=== PATIENT | male | born 1955 | race Hispanic/Latino ===

== ENCOUNTER 2016-08-05 15:13 | Inpatient (IN) | payer OTHER ==
[2016-08-05 15:30] VITALS: BMI 35.9
--- NOTE | 2016-08-05 15:49 | ED PDOC ---
Arrival/HPI - General Chief Complaint: Abnormal Labs Time Seen by Provider: 08/05/16 15:40 Historian: Patient - History of Present Illness Narrative History of Present Illness (Text): 08/05/16 15:45 61 year old male whose past medical history includes diabetes, kidney disease, CHF, vasculitis, sent to the emergency department for elevated creatinine. Patient also reports chronic shortness of breath which is unchanged. says the patient is sleeping a lot. Patient denies urinary symptoms, weight change, chest pain, abdominal pain, or other symptoms. PMD: Dr. Mc Symptom Onset: Gradual Symptom Course: Unchanged Modifying Factors (Text): None Associated Symptoms (Text): None Past Medical History - Provider Review Nursing Documentation Reviewed: Yes - Infectious Disease Hx of Infectious Diseases: None - Tetanus Immunization Tetanus Immunization: Unknown - Past Medical History Past Medical History: No Previous - Cardiac Hx Congestive Heart Failure: Yes Hx Hypertension: Yes - Pulmonary Hx Chronic Obstructive Pulmonary Disease (COPD): Yes - Neurological Hx Neurological Disorder: No - HEENT Hx HEENT Disorder: No - Renal Hx Renal Disorder: Yes Hx Renal Failure: Yes - Endocrine/Metabolic Hx Diabetes Mellitus Type 1: Yes Hx Hypothyroidism: Yes - Hematological/Oncological Hx Anemia: Yes - Integumentary Hx Dermatological Disorder: No - Musculoskeletal/Rheumatological Hx Arthritis: Yes - Gastrointestinal Hx Gastrointestinal Disorders: No - Genitourinary/Gynecological Other/Comment: bph - Psychiatric Hx Depression: No Hx Emotional Abuse: No Hx Physical Abuse: No Hx Substance Use: No - Past Surgical History Past Surgical History: No Previous - Surgical History Hx Orthopedic Surgery: Yes - Anesthesia Hx Anesthesia Reactions: No Hx Malignant Hyperthermia: No - Suicidal Assessment Feels Threatened In Home Enviroment: No Family/Social History - Physician Review Nursing Documentation Reviewed: Yes Family/Social History: Unknown Family HX Smoking Status: Never Smoked Hx Alcohol Use: No Hx Substance Use: No Hx Substance Use Treatment: No Allergies/Home Meds Allergies/Adverse Reactions: Allergies No Known Allergies Allergy (Verified 08/05/16 15:30) Home Medications: Home Meds Medication Instructions Recorded Confirmed Atorvastatin Calcium [Lipitor] 20 mg PO DAILY 10/22/13 08/05/16 Insulin Glargine,Hum.rec.anlog 15 units SC DAILY 10/22/13 08/05/16 [Lantus] Insulin Lispro, Recombinant 15 units SC DAILY 10/22/13 08/05/16 [Humalog] Losartan [Cozaar] 50 mg PO DAILY 10/22/13 08/05/16 amLODIPine [Norvasc] 5 mg PO DAILY 10/22/13 08/05/16 Cholecalciferol [Vitamin D 1000 IU] 5,000 iu PO QWK 08/05/16 08/05/16 Insulin Glargine,Hum.rec.anlog 30 unit SQ DIN 08/05/16 08/05/16 [Toujeo Solostar] Levothyroxine [Synthroid] 88 mcg PO DAILY 08/05/16 08/05/16 Metoprolol Succinate [Toprol XL] 50 mg PO BID 08/05/16 08/05/16 Ondansetron [Zofran] 4 mg PO BID 08/05/16 08/05/16 Pantoprazole [Protonix] 40 mg PO DAILY 08/05/16 08/05/16 Temazepam [Restoril] 30 mg PO DIN 08/05/16 08/05/16 hydrALAZINE [hydralazine 50 mg PO Q4 08/05/16 08/05/16 Hydrochloride] oxyCODONE [oxyCODONE Immediate 15 mg PO Q4 08/05/16 08/05/16 Release Tab] predniSONE [Prednisone] 10 mg PO DAILY 08/05/16 08/05/16 Review of Systems - Physician Review All systems were reviewed & negative as marked: Yes - Review of Systems Constitutional: absent: Weight Change Respiratory: SOB (chronic, unchanged) Cardiovascular: absent: Chest Pain Gastrointestinal: absent: Abdominal Pain, Vomiting Genitourinary Male: absent: Dysuria, Frequency, Hematuria Physical Exam Vital Signs Reviewed: Yes Vital Signs Temp Pulse Resp BP Pulse Ox 08/05/16 15:30 98.1 F 93 H 18 151/95 H 97 08/05/16 15:29 98.1 F 93 H 18 151/95 H 97 Temperature: Afebrile Blood Pressure: Normal Pulse: Regular Respiratory Rate: Normal Appearance: Positive for: Well-Appearing, Non-Toxic, Comfortable Pain Distress: None Mental Status: Positive for: Alert and Oriented X 3 - Systems Exam Head: Present: Atraumatic, Normocephalic Pupils: Present: PERRL Extroacular Muscles: Present: EOMI Conjunctiva: Present: Normal Mouth: Present: Moist Mucous Membranes Neck: Present: Normal Range of Motion Respiratory/Chest: Present: Clear to Auscultation, Good Air Exchange. No: Respiratory Distress, Accessory Muscle Use Cardiovascular: Present: Regular Rate and Rhythm, Normal S1, S2. No: Murmurs Abdomen: Present: Normal Bowel Sounds. No: Tenderness, Distention, Peritoneal Signs Back: Present: Normal Inspection Upper Extremity: Present: Normal Inspection. No: Cyanosis, Edema Lower Extremity: Present: Normal Inspection. No: Edema Neurological: Present: GCS=15, CN II-XII Intact, Speech Normal Skin: Present: Warm, Dry, Normal Color. No: Rashes Psychiatric: Present: Alert, Oriented x 3, Normal Insight, Normal Concentration Medical Decision Making ED Course and Treatment: Impression: 61 year old male whose past medical history includes diabetes, kidney disease, CHF, vasculitis, sent to the emergency department for elevated creatinine. Plan: -- Chest X-ray -- Labs -- Reassess and disposition Progress Notes: 08/05/16 18:08 Patient says that his last creatinine was 2.1 about 3 months ago and today on blood draw it is 5.9; will need to be admitted for further evaluation and treatment by renal. Discussed with Dr. Makayla Mcmahon. - Lab Interpretations Lab Results: 08/05/16 16:20 08/05/16 16:20 Lab Results 08/05/16 16:20: Blood Type O NEGATIVE, Antibody Screen Negative, BBK History Checked Patient has bt 08/05/16 16:20: Sodium 138, Potassium 4.7, Chloride 108 H, Carbon Dioxide 20 L, Anion Gap 15, BUN 68 H, Creatinine 5.9 H, Est GFR ( Amer) 12, Est GFR ( Non-Af Amer) 10, Random Glucose 164 H, Calcium 8.5, Phosphorus 5.0 H, Magnesium 1.5 L, Total Bilirubin 0.5, AST 18, ALT 22, Alkaline Phosphatase 141 H, Lactate Dehydrogenase 329 L, Total Creatine Kinase 42, Troponin I < 0.01, Total Protein 6.7, Albumin 3.4, Globulin 3.4, Albumin/Globulin Ratio 1.0 L, Amylase 71, Lipase 59 08/05/16 16:20: PT 11.2, INR 1.04, APTT 27.7 08/05/16 16:20: WBC 13.9 H D, RBC 3.47 L, Hgb 9.9 L, Hct 30.0 L, MCV 86.5, MCH 28.5, MCHC 33.0, RDW 14.9 H, Plt Count 187, MPV 10.7, Gran % 86.4 H, Lymph % ( Auto) 5.9 L, [place] % (Auto) 7.0 H, Eos % (Auto) 0.4 L, Baso % (Auto) 0.3, Gran # 11.99 H, Lymph # 0.8 L, [place] # 1.0 H, Eos # 0.1, Baso # 0.04 - RAD Interpretation Radiology Orders: 08/05/16 15:46 CHEST TWO VIEWS (PA/LAT) [RAD] Stat - EKG Interpretation EKG Interpretation (Text): 08/05/16 18:15 NSR @ 78 with incomplete RBBB; QRS is 94; normal intervals; normal axis. - Medication Orders Current Medication Orders: Magnesium Sulfate 2 gm/ Sodium (Chloride) 104 mls @ 102 mls/hr IV ONCE ONE Stop: 08/05/16 18:42 Discontinued Medications Sodium Chloride (Sodium Chloride 0.9%) 500 mls @ 999 mls/hr IV .[id number] STA Stop: 08/05/16 17:37 - Scribe Statement The provider has reviewed the documentation as recorded by the Karthik Mensah Provider Scribe Attestation: All medical record entries made by the Scribe were at my direction and personally dictated by me. I have reviewed the chart and agree that the record accurately reflects my personal performance of the history, physical exam, medical decision making, and the department course for this patient. I have also personally directed, reviewed, and agree with the discharge instructions and disposition. Disposition/Present on Arrival - Present on Arrival Any Indicators Present on Arrival: Yes History of DVT/PE: No History of Uncontrolled Diabetes: Yes Urinary Catheter: No History of Decub. Ulcer: No History Surgical Site Infection Following: None - Disposition Have Diagnosis and Disposition been Completed?: Yes Diagnosis: Acute on chronic renal insufficiency Disposition: HOSPITALIZED Disposition Time: 17:35 Patient Plan: Admission Patient Problems: Current Active Problems Problem Status Onset Acute on chronic renal insufficiency Acute Condition: FAIR
[2016-08-05 16:32] LABS: ADD MANUAL DIFF? NO
[2016-08-05 16:39] LABS: BASO # 0.04 K/mm3 (0.0-2.0); BASO % 0.3 % (0.0-3.0); EOS # 0.1 (0.0-0.7); EOS % 0.4 % (1.5-5.0); GRAN # 11.99 (1.4-6.5); GRAN % 86.4 % (50.0-68.0); LYMPH # 0.8 (1.2-3.4); LYMPH % 5.9 % (22.0-35.0); MEAN CELL VOLUME 86.5 fL (80.0-105.0); MEAN CORPUSCULAR HEMOGLOBIN 28.5 pg (25.0-35.0); MEAN PLATELET VOLUME 10.7 fl (7.0-11.0); PLATELET COUNT 187 10^3/uL (120.0-450.0); RED CELL DISTRIBUTION WIDTH 14.9 % (11.5-14.5); WHITE BLOOD COUNT 13.9 10^3/ul (4.5-11.0)
[2016-08-05 16:47] LABS: INR 1.04 (0.93-1.08); PARTIAL THROMBOPLASTIN TIME 27.7 Seconds (23.7-30.8)
[2016-08-05 16:50] LABS: ALKALINE PHOSPHATASE 141 U/L (38-133); ALT/SGPT 22 U/L (7-56); AMYLASE 71 U/L (35-125); AST/SGOT 18 U/L (15-59); BILIRUBIN,TOTAL 0.5 mg/dL (0.2-1.3); BLOOD UREA NITROGEN 68 mg/dL (7-21); CALCIUM 8.5 mg/dL (8.4-10.5); CARBON DIOXIDE 20 mmol/L (21-33); CHLORIDE 108 mmol/L (98-107); GFR AFRICAN-AMERICAN 12; GLUCOSE,RANDOM 164 mg/dL (70-110); LIPASE 59 U/L (23-300); MAGNESIUM 1.5 mg/dL (1.7-2.2); POTASSIUM 4.7 mmol/L (3.6-5.0); SODIUM 138 mmol/L (132-148); TOTAL PROTEIN 6.7 g/dL (5.8-8.3)
[2016-08-05 17:02] LABS: TROPONIN I < 0.01 ng/mL
[2016-08-05] MEDS ORDERED: Sodium Chloride 0.9% 500 ML IV STA (17:07)
[2016-08-05] MEDS ORDERED: Magnesium Sulfate 2 GM in Sodium Chloride 0.9% 100 ML IV ONE (17:41)
[2016-08-05] MEDS ORDERED: Albuterol-Ipratrop 3 mg / 0.5 (3 ml) UD IH PRN (19:51)
[2016-08-05] MEDS ORDERED: Sodium Chloride 0.9% 1,000 ML IV SCH (20:00)
--- NOTE | 2016-08-05 20:43 | CP.PCM.HP ---
<Russel Carcamo - Last Filed: 08/05/16 20:58> History of Present Illness - History of Present Illness History of Present Illness: 61 y/o F with PMH of chronic kidney disease, IDDM, vasculitis, HTN, and CHF presents to the ED after abnormal lab finding on routine lab work. Pt states he underwent blood work at his PMD's office and was found to have an acute elevation in his creatinine. Pt states his last known creatinine from several months ago was 2.1. Pt was told to come to the hospital for emergent follow up and evaluation of new lab finding. Of note, pt states 4 years ago when he first discovered his vasculitis diagnosis, he underwent dialysis. Pt states he only had a few treatments of dialysis before his kidneys improved to the point where he could stop. Pt denies any dialysis treatments since that time. Pt denies any urinary frequency, dysuria, hematuria. Denies CP, SOB, N/V/D, recent sick contacts, fevers, chills. PMH: Chronic kidney disease, IDDM, vasculitis, and CHF Surgical Hx: Left knee surgery Family Hx: Father - stroke Social Hx: Former smoker and alcohol abuser. Denies illicit drug use. Allergies: NKDA Medications: See MAR PMD: Dr. Mc Present on Admission - Present on Admission Any Indicators Present on Admission: No Review of Systems - Constitutional Constitutional: absent: Chills, Fatigue, Fever - EENT Eyes: absent: Blurred Vision, Change in Vision Nose/Mouth/Throat: absent: Nasal Congestion, Nasal Discharge - Cardiovascular Cardiovascular: absent: Chest Pain, Irregular Heart Rhythm - Respiratory Respiratory: absent: Cough, Dyspnea - Gastrointestinal Gastrointestinal: absent: Abdominal Pain, Diarrhea, Vomiting - Genitourinary Genitourinary: absent: Difficulty Urinating, Dysuria, Hematuria - Integumentary Integumentary: absent: New Lesions, Rash - Neurological Neurological: absent: Numbness, Syncope, Tingling - Hematologic/Lymphatic Hematologic: absent: Easy Bleeding, Easy Bruising Past Patient History - Infectious Disease Hx of Infectious Diseases: None - Tetanus Immunizations Tetanus Immunization: Unknown - Past Social History Smoking Status: Never Smoked - CARDIAC Hx Congestive Heart Failure: Yes Hx Hypertension: Yes - PULMONARY Hx Chronic Obstructive Pulmonary Disease (COPD): Yes - NEUROLOGICAL Hx Neurological Disorder: No - HEENT Hx HEENT Problems: No - RENAL Hx Chronic Kidney Disease: Yes Hx Renal Failure: Yes - ENDOCRINE/METABOLIC Hx Diabetes Mellitus Type 1: Yes Hx Hypothyroidism: Yes - HEMATOLOGICAL/ONCOLOGICAL Hx Anemia: Yes - INTEGUMENTARY Hx Dermatological Problems: No - MUSCULOSKELETAL/RHEUMATOLOGICAL Hx Arthritis: Yes - GASTROINTESTINAL Hx Gastrointestinal Disorders: No - GENITOURINARY/GYNECOLOGICAL Other/Comment: bph - PSYCHIATRIC Hx Depression: No Hx Emotional Abuse: No Hx Physical Abuse: No Hx Substance Use: No - SURGICAL HISTORY Hx Orthopedic Surgery: Yes - ANESTHESIA Hx Anesthesia Reactions: No Hx Malignant Hyperthermia: No Meds Allergies/Adverse Reactions: Allergies Allergy/AdvReac Type Severity Reaction Status Date / Time No Known Allergies Allergy Verified 08/05/16 22:07 Physical Exam - Constitutional Appears: Well, No Acute Distress - Head Exam Head Exam: ATRAUMATIC, NORMAL INSPECTION, NORMOCEPHALIC - Eye Exam Eye Exam: EOMI, Normal appearance, PERRL - ENT Exam ENT Exam: Mucous Membranes Moist, Normal Exam - Neck Exam Neck exam: Positive for: Normal Inspection. Negative for: Lymphadenopathy - Respiratory Exam Respiratory Exam: Clear to Auscultation Bilateral, NORMAL BREATHING PATTERN. absent: Rales, Rhonchi, Wheezes - Cardiovascular Exam Cardiovascular Exam: RRR, +S1, +S2 - GI/Abdominal Exam GI & Abdominal Exam: Normal Bowel Sounds, Soft. absent: Tenderness - Extremities Exam Extremities exam: Positive for: normal inspection. Negative for: calf tenderness, pedal edema - Neurological Exam Neurological exam: Alert, CN II-XII Intact, Oriented x3 - Psychiatric Exam Psychiatric exam: Normal Affect, Normal Mood - Skin Skin Exam: Intact, Normal Color, Warm Results - Vital Signs Recent Vital Signs: Last Vital Signs Temp 98.1 F 08/05/16 15:30 Pulse 82 08/05/16 19:32 Resp 17 08/05/16 19:32 BP 167/91 H 08/05/16 19:32 Pulse Ox 95 08/05/16 19:32 - Labs Result Diagrams: 08/05/16 16:20 08/05/16 16:20 Assessment & Plan - Assessment and Plan (Free Text) Plan: 61 y/o F with PMH of chronic kidney disease, IDDM, vasculitis, HTN, and CHF presents with renal insufficiency. Pt will be admitted to med/surg and have nephrology consulted. 1. Renal Insufficiency Urine electrolytes ordered Serum and urine osmolality ordered NS @ 75 Nephrology consulted, Dr. Pravin Padgett 2. IDDM ISS HgA1c 3. HTN Continue home medication 4. Vasculitis Continue prednisone 5. CHF Continue lasix BNP ordered Consider Echocargiogram 6. Leukocytosis Likely secondary to chronic steroid use Afebrile Monitor closely Recheck in AM labs 7. Normocytic anemia, chronic Baseline hg, likely secondary to CKD Monitor for acute drop in Hg 8. PPX Heparin Zofran Seen, reviewed, and discussed with attending LULI CarcamoY-1 <Chato Garcia - Last Filed: 08/06/16 01:00> Results - Vital Signs Recent Vital Signs: Last Vital Signs Temp 98.1 F 08/05/16 22:47 Pulse 82 08/05/16 22:47 Resp 17 08/05/16 22:47 BP 167/91 H 08/05/16 22:47 Pulse Ox 95 08/05/16 19:32 - Labs Result Diagrams: 08/05/16 16:20 08/05/16 16:20 Labs: Laboratory Results - last 24 hr 08/05/16 08/05/16 08/05/16 21:35 23:00 23:00 POC Glucose (mg/dL) 178 H Urine Color Yellow Urine Appearance Clear Urine pH 6.0 Ur Specific Kennard 1.020 Urine Protein 100 H Urine Glucose (UA) 500 H Urine Ketones Negative Urine Blood Large H Urine Nitrate Negative Urine Bilirubin Negative Urine Urobilinogen 0.2 Ur Leukocyte Esterase Negative Urine RBC Tntc Urine WBC 1 - 3 Ur Epithelial Cells 1 - 3 Urine Bacteria Small Urine Osmolality 341 Ur Random Creatinine 47 Ur Random Sodium 86 Ur Random Potassium 13.0 Attending/Attestation - Attestation I have personally seen and examined this patient.: Yes I have fully participated in the care of the patient.: Yes I have reviewed all pertinent clinical information: Yes Notes (Text): 08/06/16 00:59 Patient was seen when he was in bed # 6 in the ER with medical delivery technician. Agree with history, physical examination, assessment and plan.
[2016-08-05] MEDS: Insulin Reg-LOW-Coverage SC SCH (22:00)
[2016-08-05] MEDS: Sodium Chloride 0.9% 1,000 ML IV SCH (22:00)
[2016-08-05] MEDS ORDERED: Pneumococcal 23-Valent Vaccine IM ONE (22:59)
[2016-08-05 23:23] LABS: URINE BILIRUBIN NEGATIVE (NEGATIVE); URINE BLOOD LARGE (NEGATIVE); URINE GLUCOSE (UA) 500 mg/dL (NEGATIVE); URINE KETONE NEGATIVE (NEGATIVE); URINE LEUKOCYTE ESTERASE NEGATIVE Leu/uL (NEGATIVE); URINE PROTEIN 100 mg/dL (<30 mg/dL); URINE UROBILINOGEN 0.2 E.U./dL (<1 E.U./dL)
[2016-08-05 23:26] LABS: URINE APPEARANCE CLEAR (CLEAR); URINE COLOR YELLOW (YELLOW)
[2016-08-05 23:32] LABS: URINE BACTERIA SMALL (NEG); URINE RBC TNTC /hpf (0-2)
[2016-08-06] MEDS ORDERED: oxyCODONE 15 mg Immediate Release Tab PO SCH (04:00)
[2016-08-06 07:38] LABS: HEMATOCRIT 29.5 % (42.0-52.0); MEAN CELL VOLUME 86.8 fL (80.0-105.0); MEAN CORPUSCULAR HEMOGLOBIN 27.9 pg (25.0-35.0); MEAN CORPUSCULAR HGB CONC 32.2 g/dl (31.0-37.0); MEAN PLATELET VOLUME 10.9 fl (7.0-11.0); WHITE BLOOD COUNT 10.4 10^3/ul (4.5-11.0)
[2016-08-06 07:44] LABS: ALB/GLOB RATIO 0.9 (1.1-1.8); BILIRUBIN,TOTAL 0.5 mg/dL (0.2-1.3); CALCIUM 8.8 mg/dL (8.4-10.5); POTASSIUM 4.8 mmol/L (3.6-5.0); TOTAL PROTEIN 6.6 g/dL (5.8-8.3)
[2016-08-06] MEDS: Insulin Reg-LOW-Coverage SC SCH ×2 (07:53→12:35)
[2016-08-06] MEDS: oxyCODONE 15 mg Immediate Release Tab PO PRN ×3 (08:08→21:25)
--- NOTE | 2016-08-06 10:04 | RAD ---
HISTORY: renal failure; h/o CHF COMPARISON: 11/14/2013. TECHNIQUE: Chest PA and lateral FINDINGS: LUNGS: No focal airspace opacity. PLEURA: No significant pleural effusion identified. No pneumothorax apparent. CARDIOVASCULAR: Normal. OSSEOUS STRUCTURES: The osseous structures demonstrate degenerative changes. VISUALIZED UPPER ABDOMEN: Normal. OTHER FINDINGS: None. IMPRESSION: No focal airspace opacity.
--- NOTE | 2016-08-06 10:30 | CP.PCM.PN ---
<Rhianna Patel - Last Filed: 08/06/16 10:50> Subjective - Date & Time of Evaluation Date of Evaluation: 08/06/16 Time of Evaluation: 08:40 - Subjective Subjective: Pt seen and evaluated at bedside. Currently denies n/v and is eating. Afebrile overnight. Objective - Vital Signs/Intake and Output Vital Signs (last 24 hours): Temp Pulse Resp BP Pulse Ox 97.9 F 85 18 183/99 H 97 08/06/16 06:00 08/06/16 08:08 08/06/16 06:00 08/06/16 08:08 08/06/16 06:00 Intake and Output: 08/06/16 08/06/16 06:59 18:59 Intake Total 540 Output Total 600 Balance -60 - Medications Medications: Current Medications Albuterol/Ipratropium (Duoneb 3 Mg/0.5 Mg (3 Ml) Ud) 3 ml IH Q2H PRN PRN Reason: Shortness of Breath Amlodipine Besylate (Norvasc) 5 mg PO DAILY [facility] Atorvastatin Calcium (Lipitor) 20 mg PO DAILY [facility] Cholecalciferol (Vitamin D) 5,000 iu PO QWK [facility] Clonidine HCl (Catapres) 0.1 mg PO BID PRN PRN Reason: Systolic Blood Pressure Furosemide (Lasix) 40 mg PO BID [facility] Heparin Sodium (Porcine) (Heparin) 5,000 units SC Q12 [place] PRN Reason: Protocol Last Admin: 08/05/16 21:57 Dose: 5,000 units Hydralazine HCl (Apresoline) 50 mg PO Q4 [facility] Last Admin: 08/06/16 08:08 Dose: 50 mg Sodium Chloride (Sodium Chloride 0.9%) 1,000 mls @ 75 mls/hr IV .[id number] [facility] Last Admin: 08/05/16 22:00 Dose: 75 mls/hr Insulin Human Regular (Humulin R Low) 0 units SC ACHS [facility] PRN Reason: Protocol Last Admin: 08/06/16 07:53 Dose: Not Given Levothyroxine Sodium (Synthroid) 88 mcg PO DAILY [facility] Losartan Potassium (Cozaar) 50 mg PO DAILY [facility] Metoprolol Succinate (Toprol Xl) 50 mg PO BID [facility] Ondansetron HCl (Zofran Inj) 4 mg IVP Q4H PRN PRN Reason: Nausea/Vomiting Oxycodone HCl (Oxycodone Immediate Release Tab) 15 mg PO Q4 PRN PRN Reason: Pain, moderate (4-7) Last Admin: 08/06/16 08:08 Dose: 15 mg Pantoprazole Sodium (Protonix Ec Tab) 40 mg PO DAILY [place] Prednisone (Prednisone Tab) 10 mg PO DAILY [facility] Zolpidem Tartrate (Ambien) 5 mg PO HS PRN; Protocol PRN Reason: Insomnia - Labs Labs: 08/06/16 07:00 08/06/16 07:00 PT 11.2 Seconds (9.9-11.8) 08/05/16 16:20 INR 1.04 (0.93-1.08) 08/05/16 16:20 APTT 27.7 Seconds (23.7-30.8) 08/05/16 16:20 - Constitutional Appears: Non-toxic, No Acute Distress - Head Exam Head Exam: ATRAUMATIC, NORMOCEPHALIC - Eye Exam Eye Exam: EOMI, Normal appearance - Respiratory Exam Respiratory Exam: Clear to Ausculation Bilateral, NORMAL BREATHING PATTERN - Cardiovascular Exam Cardiovascular Exam: +S1, +S2. absent: Bradycardia - GI/Abdominal Exam GI & Abdominal Exam: Soft. absent: Tenderness - Back Exam Back Exam: absent: CVA tenderness (L), CVA tenderness (R) - Neurological Exam Neurological Exam: Alert, Awake - Skin Skin Exam: Intact, Normal Color Assessment and Plan - Assessment and Plan (Free Text) Plan: 61 y/o F with PMH of chronic kidney disease, IDDM, vasculitis, HTN, and CHF presents with renal insufficiency. Pt will be admitted to med/surg and have nephrology consulted. 1. Renal Insufficiency NS @ 75 Nephrology consulted, Dr. Casanova Usodium and U creatinine are 68 and 47 respectively. FENa is 7.8% indicating post-renal/obstructive causes. Renal U/S pending 2. IDDM ISS HgA1c 3. HTN Continuing home medication, except losartan on hold for high Cr. 4. Vasculitis Continue prednisone 5. Hx of CHF lasix on hold for high CR BNP 1020 6. Leukocytosis Likely secondary to chronic steroid use Afebrile, 10.4 wbc today Monitor closely 7. Normocytic anemia, chronic Baseline hg, likely secondary to CKD Monitor for acute drop in Hg 8. PPX Heparin Zofran Seen, reviewed, and discussed with attending Radha , PGY-1 <Gregorio Fay - Last Filed: 08/06/16 11:42> Objective - Vital Signs/Intake and Output Vital Signs (last 24 hours): Temp Pulse Resp BP Pulse Ox 97.9 F 111 H 18 148/83 97 08/06/16 06:00 08/06/16 11:02 08/06/16 06:00 08/06/16 11:02 08/06/16 06:00 Intake and Output: 08/06/16 08/06/16 06:59 18:59 Intake Total 540 Output Total 600 Balance -60 - Medications Medications: Current Medications Albuterol/Ipratropium (Duoneb 3 Mg/0.5 Mg (3 Ml) Ud) 3 ml IH Q2H PRN PRN Reason: Shortness of Breath Amlodipine Besylate (Norvasc) 5 mg PO DAILY [facility] Last Admin: 08/06/16 11:02 Dose: 5 mg Atorvastatin Calcium (Lipitor) 20 mg PO DAILY [facility] Last Admin: 08/06/16 11:02 Dose: 20 mg Cholecalciferol (Vitamin D) 5,000 iu PO QWK [facility] Clonidine HCl (Catapres) 0.1 mg PO BID PRN PRN Reason: Systolic Blood Pressure Last Admin: 08/06/16 11:02 Dose: 0.1 mg Furosemide (Lasix) 40 mg PO BID [facility] Heparin Sodium (Porcine) (Heparin) 5,000 units SC Q12 [facility] PRN Reason: Protocol Last Admin: 08/06/16 11:01 Dose: 5,000 units Hydralazine HCl (Apresoline) 50 mg PO Q4 [facility] Last Admin: 08/06/16 08:08 Dose: 50 mg Sodium Chloride (Sodium Chloride 0.9%) 1,000 mls @ 75 mls/hr IV .[id number] [facility] Last Admin: 08/05/16 22:00 Dose: 75 mls/hr Insulin Human Regular (Humulin R Low) 0 units SC ACHS [facility] PRN Reason: Protocol Last Admin: 08/06/16 07:53 Dose: Not Given Levothyroxine Sodium (Synthroid) 88 mcg PO DAILY [facility] Last Admin: 08/06/16 11:01 Dose: 88 mcg Losartan Potassium (Cozaar) 50 mg PO DAILY [facility] Metoprolol Succinate (Toprol Xl) 50 mg PO BID [facility] Last Admin: 08/06/16 11:01 Dose: 50 mg Ondansetron HCl (Zofran Inj) 4 mg IVP Q4H PRN PRN Reason: Nausea/Vomiting Oxycodone HCl (Oxycodone Immediate Release Tab) 15 mg PO Q4 PRN PRN Reason: Pain, moderate (4-7) Last Admin: 08/06/16 08:08 Dose: 15 mg Pantoprazole Sodium (Protonix Ec Tab) 40 mg PO DAILY [facility] Prednisone (Prednisone Tab) 10 mg PO DAILY [facility] Last Admin: 08/06/16 11:02 Dose: 10 mg Zolpidem Tartrate (Ambien) 5 mg PO HS PRN; Protocol PRN Reason: Insomnia - Labs Labs: 08/06/16 07:00 08/06/16 07:00 PT 11.2 Seconds (9.9-11.8) 08/05/16 16:20 INR 1.04 (0.93-1.08) 08/05/16 16:20 APTT 27.7 Seconds (23.7-30.8) 08/05/16 16:20 Attending/Attestation - Attestation I have personally seen and examined this patient.: Yes I have fully participated in the care of the patient.: Yes I have reviewed all pertinent clinical information, including history, physical exam and plan: Yes Notes (Text): 08/06/16 11:36 61 year old male with past medical history of CKD, diabetes, vasculitis, hypertension and ?CHF who was referred from [facility] for acute on chronic renal failure. Nephrology consultation is requested. Will hold lasix and losartan for now. Patient is on metoprolol and hydralazine for hypertension; will add clonidine prn. FeNa is elevated, however patient takes lasix at home. Renal US was negative; will check bladder US. Will continue to monitor creatinine closely and follow up with nephrology recommendations. Normocytic anemia is likely due to anemia of chronic renal disease. Anemia workup is ordered. Gregorio Fay MD Hospitalist.
--- NOTE | 2016-08-06 10:32 | CARD ---
APPROVED REPORT EKG Measurement Heart [id number] <Conclusion> Normal sinus rhythm Incomplete right bundle branch block
--- NOTE | 2016-08-06 10:56 | US ---
PROCEDURE: Ultrasound of the Kidneys HISTORY: tyrone COMPARISON: CT from 10/22/2013.. TECHNIQUE: Sonogram of the kidneys. Limited evaluation due to extensive soft tissue shadowing. FINDINGS: RIGHT KIDNEY: Measures: 9.8 x 5.6 x 5.7 cm. Normal in size, contour and echogenicity. No stone, solid mass lesion or hydronephrosis visualized. LEFT KIDNEY: Measures: 10.9 x 6.2 x 5.5 cm. Normal in size, contour and echogenicity. No stone, solid mass lesion or hydronephrosis visualized. OTHER FINDINGS: None. IMPRESSION: No acute findings.
[2016-08-06] MEDS: Metoprolol Succinate 50 mg XL Tab PO SCH ×2 (11:01→18:04)
[2016-08-06] MEDS: Levothyroxine 88 MCG TAB PO SCH (11:01)
[2016-08-06 12:15] LABS: MAGNESIUM 1.9 mg/dL (1.7-2.2)
[2016-08-06 12:23] LABS: IRON 58 ug/dL (45-180)
[2016-08-06] MEDS: Pantoprazole 40 mg EC Tab PO SCH (12:35)
[2016-08-06] MEDS: Sodium Chloride 0.9% 1,000 ML IV SCH (12:35)
[2016-08-06] MEDS ORDERED: Sodium Chloride 0.45% 1,000 ML IV SCH ×2 (14:00)
[2016-08-06] MEDS: Insulin Reg-HIGH-Coverage SC SCH ×3 (14:36→22:54)
--- NOTE | 2016-08-06 16:26 | US ---
Bladder ultrasound History: Acute kidney injury. Technique: Ultrasound evaluation of the urinary bladder pre and postvoid. Findings: Prevoid bladder dimensions are 7.4 x 5.4 x 6 centimeters. Prevoid bladder volume 165.95 cc. Postvoid bladder dimensions 4.3 x 3.7 x 5 centimeter. Postvoid bladder volume: 41.8 cc. Impression: Pre and postvoid bladder volumes as above.
--- NOTE | 2016-08-06 16:41 | CON ---
DATE: 08/06/2016 A 61-year-old male with past medical history of diabetes, hypertension, CHF and CKD stage IIIB/IV sec ondary to biopsy proven IgA nephropathy. Presented to the ED yesterday after being told about abnorm al lab results by PMD. The patient found to have creatinine elevation from 2.1 about 3 months ago to 5.9 today. Nephrology consulted in this regard. The patient reports overall feeling well recently. Reports his appetite is well and energy level has been well. The patient, on further questioning, reports occasional nausea and vomiting as well as d iarrhea with the last episode occurring a couple of weeks ago and was associated will dark urine. Th e patient reports that when he gets these symptoms, he stops taking his medications as it makes him f eel worse. However, over the past week, he has been feeling well and been regular with all of his me dications. The patient denies any shortness of breath or leg swelling. Denies any recent change in urinary habits. Tolerating diet well. Denies any fevers or chills nor night sweats. Baseline funct ional status is limited due to pain in his left knee, but he is able to walk to his car and back. 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 The patient also has been on low-dose prednisone 10 mg every o ther day. SOCIAL HISTORY: Former smoker. FAMILY HISTORY: Father with CVA. REVIEW OF SYSTEMS: CONSTITUTIONAL: No fevers or chills. HEENT: No blurry vision, no change in vision, no sinus pain, although does have allergy symptoms wit h watery eyes and runny nose that he says are chronic. CARDIOVASCULAR: No chest pain, no palpitations. RESPIRATORY: No dyspnea. GASTROINTESTINAL: The patient reports intermittent abdominal pains. GENITOURINARY: As noted above. SKIN: The patient with recent darkened discoloration over parts of his body, but that resolved spont aneously. NEUROLOGIC: Denies any dizziness. Does have numbness in his feet. HEMATOLOGIC: No bleeding, no easy bruising. PSYCHIATRIC: No depression or anxiety. PHYSICAL EXAMINATION: VITAL SIGNS: Blood pressure this morning 171/97, heart rate 101, respiratory rate 18, temperature 97 .9, O2 sat 97% on room air. GENERAL: No distress, conversing coherently in full sentences. HEENT: Moist mucous membranes, nonicteric. CHEST: Clear to auscultation bilaterally. No rales, no rhonchi, no wheezes. HEART: S1, S2 normal. No murmurs, no rubs, no carotid bruit, however, left femoral bruit present. GASTROINTESTINAL: Obese, otherwise abdomen soft, nontender, nondistended. GENITOURINARY: No bladder distention. MUSCULOSKELETAL: No joint swellings. EXTREMITIES: Mild lower leg edema bilaterally. Good capillary refill. SKIN: Warm. No cyanosis. PSYCHIATRIC: . Normal mood, normal affect. NEUROLOGIC: 5/5 motor strength in bilateral upper and lower extremities. LABORATORIES: This morning, WBC 10.4, hemoglobin 9.5, hematocrit 29.5, platelets 184. Chemistry: S odium 139, potassium 4.8, chloride 110, bicarbonate 19, BUN 64, creatinine 5.5, glucose 113, calcium 8.8. Iron saturation 29%, iron 58, TIBC 199. Serum albumin 3.2. UA showing 100 mg/dL protein, 500 mg/dL glucose, RBCs too numerous to count. Urine microscopy directly observed numerous RBCs, some cl early dysmorphic, occasional missed cellular casts present. Chest x-ray directly visualized, clear, no pulmonary vascular congestion. ASSESSMENT AND PLAN: 1. Acute renal failure in the setting of biopsy proven crescentic IgA nephropathy. 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 Proteinuria had alr mk increased on labs seen 3 months ago with patient already on maximum dose of losartan. The quest ion now is whether patient has recoverable kidney function, in which case we should pursue immunosupp ressive therapy. However, if patient has pronounced globally sclerotic glomeruli, then the risks of immunosuppressive treatment are outweigh any benefit and patient should just have supportive care wit h close monitoring and transition to hemodialysis/workup for transplantation. Plan: Will start puls e Solu-Medrol today 1 gram daily x 3 days. Will obtain renal biopsy tomorrow and decide on further t reatment pending biopsy results. Continue to hold losartan. Avoid any nephrotoxic agents. 2. Hypertension, uncontrolled. The patient currently on Norvasc 5 mg daily, metoprolol XL 50 mg b.i .d., hydralazine 50 mg q. 4 hours with losartan and Lasix being held. Also started on p.r.n. clonidi ne 0.1 mg. Will decrease frequency of hydralazine to q. 6 hours. Will increase clonidine p.r.n. to q. 8 hours 0.1 mg. Need to maintain systolic blood pressure less than 150 in order to decrease [facility] es of bleeding with renal biopsy. 3. Diabetes. Previous A1c showed that sugars were not under control. Expect significant hyperglyce alli with pulse Solu-Medrol. Plan: Change regular insulin sliding scale to high-dose with q. 4 hour monitoring. The patient should also be on standing basal insulin regimen as he was on at home. 4. Congestive heart failure. The patient with echo done in 2012 that showed normal left ventricular function. However, has had history of congestive heart failure exacerbation in the past. Will grace ge IV fluids to half normal saline at 75 mL an hour to avoid volume depletion, especially as patient will likely have polyuria secondary to elevated blood sugars with pulse steroids. 5. Anemia, iron replete per labs, likely secondary to chronic disease/chronic kidney disease. Will cross and match 2 units packed red blood cells in preparation for renal biopsy tomorrow as a preempti ve measure and transfuse if any severe bleeding. 6. Prophylactic measures. Agree with keeping patient on Protonix 40 mg daily, particularly with pat ient being given IV Solu-Medrol today. May need to start pneumocystis pneumonia prophylaxis at some point if patient remains on immunosuppressive agents. Barry Casanova MD cc: [id number] TT: 08/06/2016 16:40:33 Confirmation # [id number] Dictation # [id number]
[2016-08-06] MEDS: Insulin Detemir 100 units/ml Vial (Levemir) SC SCH ×2 (18:03→21:15)
[2016-08-06 18:29] LABS: FOLATE 8.5 ng/mL
[2016-08-07] MEDS: Insulin Reg-HIGH-Coverage SC SCH ×6 (05:38→21:46)
[2016-08-07 06:35] LABS: HEMATOCRIT 30.8 % (42.0-52.0); MEAN CORPUSCULAR HEMOGLOBIN 27.9 pg (25.0-35.0); MEAN CORPUSCULAR HGB CONC 32.5 g/dl (31.0-37.0); MEAN PLATELET VOLUME 10.8 fl (7.0-11.0); RED CELL DISTRIBUTION WIDTH 14.5 % (11.5-14.5)
[2016-08-07 06:58] LABS: BILIRUBIN,TOTAL 0.5 mg/dL (0.2-1.3); CALCIUM 9.1 mg/dL (8.4-10.5); PHOSPHOROUS 4.4 mg/dL (2.5-4.5); TOTAL PROTEIN 6.8 g/dL (5.8-8.3)
[2016-08-07] MEDS ORDERED: Sod Polystyrene Sulf 15 gm/60 ml Oral Susp PO ONE ×2 (07:47→16:48)
[2016-08-07] MEDS: Albuterol-Ipratrop 3 mg / 0.5 (3 ml) UD IH SCH ×2 (08:22→08:23)
[2016-08-07] MEDS ORDERED: Insulin Regular 1 UNITS/0.01 ML ML IVP ONE (08:45)
[2016-08-07 08:52] LABS: POTASSIUM 5.9 mmol/L (3.6-5.0)
[2016-08-07] MEDS: Insulin Detemir 100 units/ml Vial (Levemir) SC SCH ×2 (09:04→21:45)
[2016-08-07] MEDS: oxyCODONE 15 mg Immediate Release Tab PO PRN ×3 (09:05→20:00)
[2016-08-07] MEDS ORDERED: SODIUM CHLORIDE 0.9% IV ONE (09:06)
[2016-08-07] MEDS ORDERED: DESMOPRESSIN IV ONE (09:06)
[2016-08-07] MEDS: Metoprolol Succinate 50 mg XL Tab PO SCH ×2 (09:38→18:10)
[2016-08-07] MEDS: Pantoprazole 40 mg EC Tab PO SCH (09:38)
[2016-08-07] MEDS: Levothyroxine 88 MCG TAB PO SCH (09:39)
[2016-08-07] MEDS ORDERED: Midazolam 2 MG/2 ML VIAL ONE (09:52)
--- NOTE | 2016-08-07 12:58 | CP.PCM.PN ---
<Pete Mistry - Last Filed: 08/07/16 12:48> Subjective - Date & Time of Evaluation Date of Evaluation: 08/07/16 Time of Evaluation: 07:00 - Subjective Subjective: Medicine Progress note. Dr. Russell Pt seen and examined at bedside. No acute events overnight. No F/C. No CP/SOB. No N/V/D. No Abd pain. No new complaints. Objective - Vital Signs/Intake and Output Vital Signs (last 24 hours): Temp Pulse Resp BP Pulse Ox 98.5 F 94 H 20 121/71 99 08/07/16 06:00 08/07/16 12:14 08/07/16 10:48 08/07/16 12:14 08/07/16 10:48 Intake and Output: 08/07/16 08/07/16 06:59 18:59 Intake Total 780 75 Output Total 1100 Balance -320 75 - Medications Medications: Current Medications Albuterol/Ipratropium (Duoneb 3 Mg/0.5 Mg (3 Ml) Ud) 3 ml IH Q2H PRN PRN Reason: Shortness of Breath Amlodipine Besylate (Norvasc) 5 mg PO DAILY [facility] Last Admin: 08/07/16 09:37 Dose: 5 mg Atorvastatin Calcium (Lipitor) 20 mg PO DAILY [facility] Last Admin: 08/07/16 09:38 Dose: 20 mg Cholecalciferol (Vitamin D) 5,000 iu PO QWK [facility] Clonidine HCl (Catapres) 0.1 mg PO Q8H PRN PRN Reason: Systolic Blood Pressure Last Admin: 08/06/16 21:25 Dose: 0.1 mg Furosemide (Lasix) 40 mg PO BID [facility] Hydralazine HCl (Apresoline) 75 mg PO Q6H [facility] Last Admin: 08/07/16 12:14 Dose: 75 mg Sodium Chloride (Sodium Chloride 0.45%) 1,000 mls @ 75 mls/hr IV .[id number] [facility] Last Admin: 08/06/16 14:35 Dose: 75 mls/hr Insulin Detemir (Levemir) 7.5 unit SC ACBHS [facility] Last Admin: 08/07/16 09:04 Dose: 7.5 unit Insulin Human Regular (Humulin R High) 0 units SC Q4H [facility] PRN Reason: Protocol Last Admin: 08/07/16 10:50 Dose: Not Given Levothyroxine Sodium (Synthroid) 88 mcg PO DAILY [facility] Last Admin: 08/07/16 09:39 Dose: 88 mcg Losartan Potassium (Cozaar) 50 mg PO DAILY [facility] Metoprolol Succinate (Toprol Xl) 50 mg PO BID [facility] Last Admin: 08/07/16 09:38 Dose: 50 mg Ondansetron HCl (Zofran Inj) 4 mg IVP Q4H PRN PRN Reason: Nausea/Vomiting Oxycodone HCl (Oxycodone Immediate Release Tab) 15 mg PO Q4 PRN PRN Reason: Pain, moderate (4-7) Last Admin: 08/07/16 09:05 Dose: 15 mg Pantoprazole Sodium (Protonix Ec Tab) 40 mg PO DAILY [facility] Last Admin: 08/07/16 09:38 Dose: 40 mg Prednisone (Prednisone Tab) 10 mg PO DAILY [facility] Last Admin: 08/06/16 11:02 Dose: 10 mg Zolpidem Tartrate (Ambien) 5 mg PO HS PRN; Protocol PRN Reason: Insomnia Last Admin: 08/06/16 21:25 Dose: 5 mg - Labs Labs: 08/07/16 06:10 08/07/16 06:10 PT 11.2 Seconds (9.9-11.8) 08/05/16 16:20 INR 1.04 (0.93-1.08) 08/05/16 16:20 APTT 27.7 Seconds (23.7-30.8) 08/05/16 16:20 - Constitutional Appears: Well, No Acute Distress - Head Exam Head Exam: ATRAUMATIC, NORMAL INSPECTION, NORMOCEPHALIC - Eye Exam Eye Exam: EOMI, Normal appearance. absent: Scleral icterus - ENT Exam ENT Exam: Mucous Membranes Moist - Respiratory Exam Respiratory Exam: Clear to Ausculation Bilateral, NORMAL BREATHING PATTERN. absent: Rales, Rhonchi, Wheezes - Cardiovascular Exam Cardiovascular Exam: RRR, +S1, +S2. absent: JVD - GI/Abdominal Exam GI & Abdominal Exam: Soft. absent: Distended, Guarding, Tenderness - Extremities Exam Extremities Exam: Normal Inspection. absent: Pedal Edema - Neurological Exam Neurological Exam: Alert, Awake, Oriented x3 - Psychiatric Exam Psychiatric exam: Normal Affect, Normal Mood - Skin Skin Exam: Dry, Intact, Normal Color, Warm Assessment and Plan - Assessment and Plan (Free Text) Assessment: 61yo F with PMHx of CKD, DM, vasculitis, HTN, and CHF presents with renal insufficiency. 1. Renal Insufficiency Continue IVF Nephrology consulted, Dr. Casanova f/u ERIN, ANCA, [place]/lambda, PTH, Protein electrophoresis, Total protein Recommend Renal Bx Hold Heparin DDVAP just prior to bx Hold nephrotoxic agents Usodium and U creatinine are 68 and 47 respectively. FENa is 7.8% indicating post-renal/obstructive causes. Renal US negative Bladder US non-significant post-void residual Consult IR, Dr. Kimberlyn Morales Will obtain Renal Bx today Hyperkalemia today: EKG with some mildly peaked T waves in precordial leads. Insulin, Albuterol and CaGluconate given Repeat BMP in the evening Consult Heme/onc, Dr. Douglass, appreciate recs hx of MGUS 2. Hx of DM ISS HgA1c - 6.4 3. Hx of HTN Continuing home medication, except losartan on hold for high Cr. Clonidine prn 4. Vasculitis Continue prednisone 5. Hx of CHF BNP 1020 6. Leukocytosis Likely secondary to chronic steroid use Afebrile, 10.4 wbc today Monitor closely 7. Normocytic anemia, chronic Baseline hg, likely secondary to CKD Monitor for acute drop in Hg 8. PPX Heparin held today due renal bx Protonix PO daily Discussed case with Dr. Drew Mistry PGY1 <Drew HYDE,Erictavareskamaljit - Last Filed: 08/07/16 17:23> Objective - Vital Signs/Intake and Output Vital Signs (last 24 hours): Temp Pulse Resp BP Pulse Ox 98.5 F 94 H 17 121/71 99 08/07/16 11:43 08/07/16 12:14 08/07/16 11:43 08/07/16 12:14 08/07/16 11:43 Intake and Output: 08/07/16 08/07/16 06:59 18:59 Intake Total 780 150 Output Total 1100 Balance -320 150 - Medications Medications: Current Medications Albuterol/Ipratropium (Duoneb 3 Mg/0.5 Mg (3 Ml) Ud) 3 ml IH Q2H PRN PRN Reason: Shortness of Breath Amlodipine Besylate (Norvasc) 5 mg PO DAILY [facility] Last Admin: 08/07/16 09:37 Dose: 5 mg Atorvastatin Calcium (Lipitor) 20 mg PO DAILY [facility] Last Admin: 08/07/16 09:38 Dose: 20 mg Cholecalciferol (Vitamin D) 5,000 iu PO QWK [facility] Clonidine HCl (Catapres) 0.1 mg PO Q8H PRN PRN Reason: Systolic Blood Pressure Last Admin: 08/06/16 21:25 Dose: 0.1 mg Furosemide (Lasix) 40 mg PO BID [facility] Hydralazine HCl (Apresoline) 25 mg PO Q8H [facility] Sodium Chloride (Sodium Chloride 0.9%) 1,000 mls @ 100 mls/hr IV .Q10H [facility] Last Admin: 08/07/16 13:00 Dose: 100 mls/hr Insulin Detemir (Levemir) 7.5 unit SC ACBHS [facility] Last Admin: 08/07/16 09:04 Dose: 7.5 unit Insulin Human Regular (Humulin R High) 0 units SC Q4H [facility] PRN Reason: Protocol Last Admin: 08/07/16 14:12 Dose: 10 units Levothyroxine Sodium (Synthroid) 88 mcg PO DAILY [facility] Last Admin: 08/07/16 09:39 Dose: 88 mcg Losartan Potassium (Cozaar) 50 mg PO DAILY [facility] Metoprolol Succinate (Toprol Xl) 50 mg PO BID [facility] Last Admin: 08/07/16 09:38 Dose: 50 mg Ondansetron HCl (Zofran Inj) 4 mg IVP Q4H PRN PRN Reason: Nausea/Vomiting Oxycodone HCl (Oxycodone Immediate Release Tab) 15 mg PO Q4 PRN PRN Reason: Pain, moderate (4-7) Last Admin: 08/07/16 15:50 Dose: 15 mg Pantoprazole Sodium (Protonix Ec Tab) 40 mg PO DAILY [facility] Last Admin: 08/07/16 09:38 Dose: 40 mg Prednisone (Prednisone Tab) 10 mg PO DAILY [facility] Last Admin: 08/06/16 11:02 Dose: 10 mg Zolpidem Tartrate (Ambien) 5 mg PO HS PRN; Protocol PRN Reason: Insomnia Last Admin: 08/06/16 21:25 Dose: 5 mg - Labs Labs: 08/07/16 15:42 08/07/16 15:42 PT 11.2 Seconds (9.9-11.8) 08/05/16 16:20 INR 1.04 (0.93-1.08) 08/05/16 16:20 APTT 27.7 Seconds (23.7-30.8) 08/05/16 16:20 Attending/Attestation - Attestation I have personally seen and examined this patient.: Yes I have fully participated in the care of the patient.: Yes I have reviewed all pertinent clinical information, including history, physical exam and plan: Yes Notes (Text): Patient was seen and examined with medical radiation tech .Agreed with resident assessment and plan. 61 year old male with past medical history of CKD(IGA Nephropathy), diabetes, vasculitis, hypertension and ?CHF who was referred from d for acute on chronic renal failure.Patient underwent renal biopsy today by IR.Nephrology is following.Creatinin is unchanged.Patient is found to have hyperkalemia today, EKG is negative for hyperkalemic changes.Patient was given insulin/albuterol and calcium gluconate earlier.Repeat L is 5.7, Kayexalate has been ordered.We will follow up potassium level. Management plan was discussed in detail with patient Education was provided.
[2016-08-07] MEDS: Sodium Chloride 0.9% 1,000 ML IV SCH ×2 (13:00→23:00)
[2016-08-07 15:52] LABS: HEMATOCRIT 27.7 % (42.0-52.0); MEAN CELL VOLUME 85.5 fL (80.0-105.0); MEAN CORPUSCULAR HEMOGLOBIN 28.7 pg (25.0-35.0); MEAN CORPUSCULAR HGB CONC 33.6 g/dl (31.0-37.0); MEAN PLATELET VOLUME 10.8 fl (7.0-11.0); RED CELL DISTRIBUTION WIDTH 14.6 % (11.5-14.5); WHITE BLOOD COUNT 14.3 10^3/ul (4.5-11.0)
[2016-08-07 16:03] LABS: POTASSIUM 5.4 mmol/L (3.6-5.0)
--- NOTE | 2016-08-07 20:19 | CT ---
PROCEDURE: CT guided left renal cortex biopsy. HISTORY: Previously diagnosed IgA nephropathy. Acute on chronic renal failure. Needs repeat biopsy. PHYSICIAN(S): Jeffery Morales MD. TECHNIQUE: The relative risks and indications of the procedure were explained to the patient and consent obtained. The patient was placed prone on the CT scanner and preliminary images through the kidneys obtained. Conscious sedation and monitoring were provided throughout the procedure by a nurse. The limited noncontrast images of the kidneys are unremarkable.. A left posterior approach was selected and the area prepped and draped in the usual sterile fashion. 1% Xylocaine was used to anesthetize the skin and soft tissues. A 17-gauge guiding needle was advanced into the left renal cortex laterally and inferiorly. Its position was confirmed with CT. Using coaxial technique, multiple core biopsies were obtained. The postprocedure images show no evidence of significant hemorrhage. IMPRESSION: 1. CT-guided left renal cortex biopsy as described above.
[2016-08-08] MEDS: Insulin Reg-HIGH-Coverage SC SCH ×6 (02:08→21:51)
[2016-08-08] MEDS: oxyCODONE 15 mg Immediate Release Tab PO PRN ×3 (02:10→18:44)
--- NOTE | 2016-08-08 02:22 | CARD ---
APPROVED REPORT EKG Measurement Heart [id number] <Conclusion> Normal sinus rhythm Normal ECG
[2016-08-08 04:31] LABS: CREATININE, RANDOM URINE 62 mg/dL (20-370)
[2016-08-08 07:31] LABS: HEMATOCRIT 25.4 % (42.0-52.0); MEAN CELL VOLUME 86.1 fL (80.0-105.0); MEAN CORPUSCULAR HEMOGLOBIN 28.1 pg (25.0-35.0); MEAN CORPUSCULAR HGB CONC 32.7 g/dl (31.0-37.0); MEAN PLATELET VOLUME 11.2 fl (7.0-11.0); RED CELL DISTRIBUTION WIDTH 14.7 % (11.5-14.5); WHITE BLOOD COUNT 9.3 10^3/ul (4.5-11.0)
[2016-08-08 07:53] LABS: BILIRUBIN,TOTAL 0.4 mg/dL (0.2-1.3); CALCIUM 8.4 mg/dL (8.4-10.5)
--- NOTE | 2016-08-08 08:09 | PN ---
DATE: 08/07/2016 A 61-year-old female with past medical history of diabetes, hypertension, CHF and CKD stage IIIB/IV s econdary to biopsy-proven crescentic IgA nephropathy, admitted with acute renal failure, nephrology f [place] for the same. The patient denies any complaints. Denies any shortness of breath. Reports urinating less, but attr ibutes this to not drinking much since yesterday. PHYSICAL EXAMINATION: VITAL SIGNS: This morning, blood pressure 154/87, heart rate 92, respirations 18, temperature 98.5, O2 sat 98% on room air. GENERAL: No distress, conversing coherently in full sentences. HEENT: Moist mucous membranes, nonicteric. CHEST: Clear to auscultation bilaterally. No rales, no rhonchi, no wheezes. CARDIOVASCULAR: S1, S2 normal, no murmurs, no gallops, no rubs. GASTROINTESTINAL: Abdomen obese, soft, nontender, nondistended. EXTREMITIES: Minimal to none lower leg edema. Good capillary refill. SKIN: No cyanosis. Extremities warm to touch. PSYCHIATRIC: Normal mood, normal affect. LABORATORY DATA: This morning. CBC: WBC 10.0, hemoglobin 10.0, hematocrit 30.8, platelets 168. Ch emistry: Sodium 137, potassium 5.9, chloride 106, bicarb 18, BUN 67, creatinine 5.8, glucose 255, ca lcium 9.1, phosphorus 4.4, albumin 3.4. ASSESSMENT: 1. Acute renal failure in the setting of previous biopsy-proven crescentic IgA nephropathy. The pat ient underwent left kidney biopsy today, done by interventional radiology in the setting of what appe ars to be an RPGN and nephritic picture with marked hematuria and uncontrolled hypertension as well a s increased proteinuria per previous labs. Started on pulse Solu-Medrol 1 gram daily, today being da y #2. If patient again has crescentic GN on biopsy and has significant viable glomeruli without tubu lar interstitial fibrosis will consider plasmapheresis and/or restarting Cytoxan in an attempt to pre serve patient's renal function. The patient at this point has a drop-off in urine output and with mi ld hyperkalemia treated medically, no urgent indication to initiate hemodialysis yet. 2. Hypertension in the setting of an RPGN. Blood pressure overly controlled with systolic blood pre ssure dropping into the high 90s. Concern that this may result in ATN superimposed on patient's glom erulonephritis. Hydralazine dose cut from 75 to 25 mg q. 8 hours. Goal blood pressure is systolic i n 140s and diastolic in 80s for now. 3. Diabetes. The patient with expected increase in blood sugars following pulse Solu-Medrol started on basal insulin in high dose sliding scale. Continue to monitor frequently q. 4 hours. 4. Congestive heart failure. The patient appears euvolemic on exam. IV fluids changed back to norm al saline at 100 mL an hour in order to avoid hypotension, but needs to be monitored carefully to vinod id precipitating congestive heart failure exacerbation. 5. Anemia. Repeat CBC about 4-5 hours post-renal biopsy shows only a mild drop in hemoglobin. Cont inue to monitor. Barry Casanova MD cc: [id number] TT: 08/07/2016 20:54:06 Confirmation # [id number] Dictation # [id number]
[2016-08-08] MEDS: Insulin Detemir 100 units/ml Vial (Levemir) SC SCH ×2 (08:37→21:53)
[2016-08-08] MEDS: Sodium Chloride 0.9% 1,000 ML IV SCH ×3 (08:37→18:17)
[2016-08-08] MEDS: Pantoprazole 40 mg EC Tab PO SCH (09:55)
[2016-08-08] MEDS: Levothyroxine 88 MCG TAB PO SCH (09:55)
[2016-08-08] MEDS: Metoprolol Succinate 50 mg XL Tab PO SCH ×2 (09:55→17:17)
--- NOTE | 2016-08-08 11:07 | CP.PCM.PN ---
<FedePete guzman - Last Filed: 08/08/16 13:15> Subjective - Date & Time of Evaluation Date of Evaluation: 08/08/16 Time of Evaluation: 07:40 - Subjective Subjective: Medicine Progress note. Dr. Russell Pt seen and examined at bedside. No acute events overnight. Patient states that he experience some pain in his left flank related to the recent biopsy site. No signs of bleeding. Denies N/V/D. No Abd pain. Had an episode of Chest pain this afternoon while ambulating to the restroom. Described as burning with some associated SOB. No F/C. Objective - Vital Signs/Intake and Output Vital Signs (last 24 hours): Temp Pulse Resp BP Pulse Ox 98.6 F 90 18 127/69 95 08/08/16 06:00 08/08/16 09:55 08/08/16 06:00 08/08/16 09:55 08/08/16 06:00 Intake and Output: 08/08/16 08/08/16 06:59 18:59 Intake Total 2140 Output Total 1550 Balance 590 - Medications Medications: Current Medications Albuterol/Ipratropium (Duoneb 3 Mg/0.5 Mg (3 Ml) Ud) 3 ml IH Q2H PRN PRN Reason: Shortness of Breath Amlodipine Besylate (Norvasc) 5 mg PO DAILY [facility] Last Admin: 08/08/16 09:55 Dose: 5 mg Atorvastatin Calcium (Lipitor) 20 mg PO DAILY [facility] Last Admin: 08/08/16 09:55 Dose: 20 mg Cholecalciferol (Vitamin D) 5,000 iu PO QWK [facility] Clonidine HCl (Catapres) 0.1 mg PO Q8H PRN PRN Reason: Systolic Blood Pressure Last Admin: 08/06/16 21:25 Dose: 0.1 mg Furosemide (Lasix) 40 mg PO BID [facility] Hydralazine HCl (Apresoline) 25 mg PO Q8H [facility] Last Admin: 08/08/16 05:17 Dose: 25 mg Sodium Chloride (Sodium Chloride 0.9%) 1,000 mls @ 100 mls/hr IV .Q10H [facility] Last Admin: 08/08/16 08:37 Dose: 100 mls/hr Insulin Detemir (Levemir) 10 unit SC ACBHS [facility] Insulin Human Regular (Humulin R High) 0 units SC Q4H [facility] PRN Reason: Protocol Last Admin: 08/08/16 09:54 Dose: 7 units Levothyroxine Sodium (Synthroid) 88 mcg PO DAILY [facility] Last Admin: 08/08/16 09:55 Dose: 88 mcg Losartan Potassium (Cozaar) 50 mg PO DAILY [facility] Metoprolol Succinate (Toprol Xl) 50 mg PO BID [facility] Last Admin: 08/08/16 09:55 Dose: 50 mg Ondansetron HCl (Zofran Inj) 4 mg IVP Q4H PRN PRN Reason: Nausea/Vomiting Oxycodone HCl (Oxycodone Immediate Release Tab) 15 mg PO Q4 PRN PRN Reason: Pain, moderate (4-7) Last Admin: 08/08/16 08:54 Dose: 15 mg Pantoprazole Sodium (Protonix Ec Tab) 40 mg PO DAILY [facility] Last Admin: 08/08/16 09:55 Dose: 40 mg Prednisone (Prednisone Tab) 10 mg PO DAILY [facility] Last Admin: 08/06/16 11:02 Dose: 10 mg Zolpidem Tartrate (Ambien) 5 mg PO HS PRN; Protocol PRN Reason: Insomnia Last Admin: 08/07/16 21:15 Dose: 5 mg - Labs Labs: 08/08/16 07:00 08/08/16 07:00 PT 11.2 Seconds (9.9-11.8) 08/05/16 16:20 INR 1.04 (0.93-1.08) 08/05/16 16:20 APTT 27.7 Seconds (23.7-30.8) 08/05/16 16:20 - Constitutional Appears: Well, No Acute Distress - Head Exam Head Exam: ATRAUMATIC, NORMAL INSPECTION, NORMOCEPHALIC - Eye Exam Eye Exam: EOMI. absent: Scleral icterus - ENT Exam ENT Exam: Mucous Membranes Moist, Normal Exam - Respiratory Exam Respiratory Exam: Clear to Ausculation Bilateral, NORMAL BREATHING PATTERN. absent: Rales, Rhonchi, Wheezes - Cardiovascular Exam Cardiovascular Exam: RRR, +S1, +S2. absent: JVD - GI/Abdominal Exam GI & Abdominal Exam: Soft. absent: Distended, Guarding, Rigid, Tenderness - Extremities Exam Extremities Exam: Normal Inspection. absent: Pedal Edema - Neurological Exam Neurological Exam: Alert, Awake, Oriented x3 - Psychiatric Exam Psychiatric exam: Normal Affect, Normal Mood - Skin Skin Exam: Dry, Intact, Normal Color, Warm Assessment and Plan - Assessment and Plan (Free Text) Assessment: 61yo F with PMHx of CKD, DM, vasculitis, HTN, and CHF presents with renal insufficiency. 1. Renal Insufficiency Continue IVF Nephrology consulted, Dr. Casanova f/u ERIN, ANCA, [place]/lambda, PTH, Protein electrophoresis, Total protein Hold nephrotoxic agents Usodium and U creatinine are 68 and 47 respectively. FENa is 7.8% indicating post-renal/obstructive causes. Renal US negative Bladder US non-significant post-void residual Consult IR, Dr. Kimberlyn Morales Renal Bx on 08/08. Awaiting results. Hyperkalemia improved Receiving solumedrol 1g dose 3/ today Consult Heme/onc, Dr. Douglass, appreciate recs hx of MGUS Normal EKG today in the setting of transient Chest pain Cardiac enzymes negative 2. Hx of DM ISS HgA1c - 6.4 Increase Levemir 10U SC bid 3. Hx of HTN Continuing home medication, except losartan on hold for high Cr. 4. Vasculitis Receiving Solumedrol 1g dose 3/3 today 5. Hx of CHF BNP 1020 Lungs clear. No signs of overload 6. Normocytic anemia, chronic Baseline hg, likely secondary to CKD Monitor for acute drop in Hg 7. PPX Heparin Protonix PO daily Discussed case with Dr. Drew Mistry PGY1 <Drew HYDE,[facility] - Last Filed: 08/08/16 16:53> Objective - Vital Signs/Intake and Output Vital Signs (last 24 hours): Temp Pulse Resp BP Pulse Ox 98.6 F 90 18 124/74 95 08/08/16 06:00 08/08/16 14:00 08/08/16 06:00 08/08/16 12:19 08/08/16 06:00 Intake and Output: 08/08/16 08/08/16 06:59 18:59 Intake Total 2140 Output Total 1550 Balance 590 - Medications Medications: Current Medications Albuterol/Ipratropium (Duoneb 3 Mg/0.5 Mg (3 Ml) Ud) 3 ml IH Q2H PRN PRN Reason: Shortness of Breath Amlodipine Besylate (Norvasc) 5 mg PO DAILY [facility] Last Admin: 08/08/16 09:55 Dose: 5 mg Atorvastatin Calcium (Lipitor) 20 mg PO DAILY [facility] Last Admin: 08/08/16 09:55 Dose: 20 mg Cholecalciferol (Vitamin D) 5,000 iu PO QWK [facility] Clonidine HCl (Catapres) 0.1 mg PO Q8H PRN PRN Reason: Systolic Blood Pressure Last Admin: 08/06/16 21:25 Dose: 0.1 mg Furosemide (Lasix) 40 mg PO BID [facility] Heparin Sodium (Porcine) (Heparin) 5,000 units SC Q12 [facility] PRN Reason: Protocol Hydralazine HCl (Apresoline) 25 mg PO Q8H [facility] Last Admin: 08/08/16 12:19 Dose: 25 mg Sodium Chloride (Sodium Chloride 0.9%) 1,000 mls @ 100 mls/hr IV .Q10H [facility] Last Admin: 08/08/16 08:37 Dose: 100 mls/hr Insulin Detemir (Levemir) 10 unit SC ACBHS [facility] Insulin Human Regular (Humulin R High) 0 units SC Q4H [facility] PRN Reason: Protocol Last Admin: 08/08/16 14:30 Dose: 7 units Levothyroxine Sodium (Synthroid) 88 mcg PO DAILY [facility] Last Admin: 08/08/16 09:55 Dose: 88 mcg Losartan Potassium (Cozaar) 50 mg PO DAILY [facility] Metoprolol Succinate (Toprol Xl) 50 mg PO BID [facility] Last Admin: 08/08/16 09:55 Dose: 50 mg Ondansetron HCl (Zofran Inj) 4 mg IVP Q4H PRN PRN Reason: Nausea/Vomiting Oxycodone HCl (Oxycodone Immediate Release Tab) 15 mg PO Q4 PRN PRN Reason: Pain, moderate (4-7) Last Admin: 08/08/16 08:54 Dose: 15 mg Pantoprazole Sodium (Protonix Ec Tab) 40 mg PO DAILY [facility] Last Admin: 08/08/16 09:55 Dose: 40 mg Prednisone (Prednisone Tab) 10 mg PO DAILY [facility] Last Admin: 08/06/16 11:02 Dose: 10 mg Zolpidem Tartrate (Ambien) 5 mg PO HS PRN; Protocol PRN Reason: Insomnia Last Admin: 08/07/16 21:15 Dose: 5 mg - Labs Labs: 08/08/16 07:00 08/08/16 07:00 PT 11.2 Seconds (9.9-11.8) 08/05/16 16:20 INR 1.04 (0.93-1.08) 08/05/16 16:20 APTT 27.7 Seconds (23.7-30.8) 08/05/16 16:20 Attending/Attestation - Attestation I have personally seen and examined this patient.: Yes I have fully participated in the care of the patient.: Yes I have reviewed all pertinent clinical information, including history, physical exam and plan: Yes Notes (Text): Patient was seen and examined with medical practice administrator .Agreed with resident assessment and plan. Patient is SP renal biopsy yesterday, remain stable.Creatinin is stable.Hyperkalemia has resolved.Blood pressure is relatively better today. Patient has episode of burning chest pain, lasting less than 30 second today.EKG is negative for ischemic changes, troponin are normal, likely GI related. Management plan was discussed in detail with patient Education was provided.
[2016-08-08 12:19] LABS: TROPONIN I < 0.01 ng/mL
--- NOTE | 2016-08-08 16:14 | CON ---
DATE: 08/08/2016 REASON FOR CONSULTATION: Known history of IgA nephropathy, currently admitted with worsening renal f ailure. Consult called to rule out possible myeloma versus MGUS. HISTORY OF PRESENT ILLNESS: The patient is a 61-year-old male with past medical history significant for chronic kidney disease, insulin-dependent diabetes mellitus, vasculitis, hypertension, congestive heart failure, who was sent by his PMD's office as he was noted to have an acute elevation of his cr eatinine which was at 2.1 about 3 months ago and has now been over 5. He was initially diagnosed wit h IgA nephropathy approximately 4 years ago at which point he did have several rounds of dialysis fol lowed by Cytoxan as well as pulsed steroids. His kidney function did improve at that point and he di d not require ongoing hemodialysis at that point. He did have a workup at that point for a myeloma w hich was negative. Consult is now once again called for known history of MGUS. He has not followed up with me in the office and has not had a bone marrow biopsy done. PAST MEDICAL HISTORY: Chronic kidney disease, insulin-dependent diabetes, vasculitis, congestive hea rt failure, known IgA nephropathy. He does have a history of left knee surgery. FAMILY HISTORY: Negative except for father dying of stroke. SOCIAL HISTORY: Positive for the patient being a former smoker and alcohol abuser, but denies any cu rrent use. ALLERGIES: No known drug allergies. MEDICATIONS: As per the MAR. REVIEW OF SYSTEMS: Also as per the HPI. PHYSICAL EXAMINATION: VITAL SIGNS: Reveal a temperature of 98.0, pulse of 90, respiratory rate of 18 and a blood pressure of 124/74. GENERAL: The patient is a middle-aged male lying in bed, in no acute distress. HEAD AND NECK: Normocephalic, atraumatic. EYES: Pupils equal, round, reactive to light and accommodation. Extraocular muscles are intact. Th ere is some pallor. No icterus is noted. NECK: Supple with no adenopathy, no JVD, no thyromegaly. LUNGS: Decreased breath sounds bilaterally with no rales or rhonchi. CARDIOVASCULAR: S1, S2 is heard. ABDOMEN: Positive bowel sounds, soft, nontender, nondistended, no organomegaly is palpated. EXTREMITIES: There is no bilateral lower extremity edema. LABORATORY DATA: Reveal a white count of 9.3, hemoglobin 8.3, hematocrit 25.4, MCV of 86.1 and a chanelle telet count of 137. Coag studies are within normal limits. Chemistries reveal a BUN/creatinine of 7 5 and 5.5. His iron studies are consistent with anemia of chronic disease. Serum protein electropho resis is pending. Alkaline phosphatase is elevated at 144. B12 and folate reveal a low B12 of 292 a nd a folate level of 85. Immunology studies are also pending. ASSESSMENT AND PLAN: Middle-aged male with acute renal failure on top of chronic renal failure, know n history of IgA nephropathy, now also has severe anemia, no active bleeding, unsure as to when his l ast gastrointestinal workup was which he will need repeated if he has not had done in over 2 years. Also, check stools for guaiac. Iron studies are consistent with anemia of chronic disease related to his renal issues. Also, await serum protein electrophoresis as well as immunofixation. May need a bone marrow biopsy. Await kidney biopsy results at this point. Thank you for the consult. Will hold off on transfusion unless he has a further drop in his hemoglob in. Thank you for the consult. We will follow. Jim Douglass MD cc: [id number] TT: 08/08/2016 16:13:12 Confirmation # [id number] Dictation # [id number] jina
[2016-08-08 18:00] VITALS: RESP 20; O2SAT 98
--- NOTE | 2016-08-08 21:52 | PN ---
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 The patient today had some bleeding, chest pain, resolved during the time of exam. Otherwise, denies any shortness of breath, reports urine normally, tolerating diet. No skin lesions reported. PHYSICAL EXAMINATION: VITAL SIGNS: This morning, blood pressure 127/69, heart rate 90, respiration 83, temperature 98.6, O 2 sat 95% on room air. GENERAL: No distress, conversing coherently in full sentences. HEENT: Moist mucous membranes, nonicteric. NECK: No JVD. RESPIRATORY: Lungs clear to auscultation bilaterally. No rales, no rhonchi, no wheezes. CARDIOVASCULAR: S1, S2 normal, no murmurs, no gallops, no rubs. GASTROINTESTINAL: Abdomen soft, nontender, nondistended. GENITOURINARY: No bladder distention. EXTREMITIES: Minimal lower leg edema bilaterally. Good capillary refill. SKIN: Warm. No cyanosis. PSYCHIATRIC: Normal mood, normal affect. LABORATORY DATA: This morning. CBC: WBC 9.3, hemoglobin 8.3, hematocrit 25.4, platelets 137. Chem istry: Sodium 137, potassium 5.0, chloride 106, bicarb 16, BUN 75, creatinine 5.5, glucose 272, calc ium 8.4, albumin 3.0. Troponin less than 0.01. Urine protein to creatinine ratio 4.7 g/g. ERIN nega tive. ASSESSMENT: 1. Acute renal failure in the setting of a previous biopsy-proven crescentic IgA acute kidney injury on chronic kidney disease. 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 Day 3 of pulse Solu-Medrol 1 gram daily. Await ing biopsy results. If patient again has crescentic CN on biopsy and has significant viable glomerul i without significant tubular interstitial fibrosis, will consider restarting Cytoxan or another immu nosuppressive agent (still trying to assess how much cumulative dose the patient has thus far receive d previously as there is generally a limit as to the lifetime cumulative dose). 2. Otherwise, nonoliguric renal failure with relatively stable electrolyte and volume status. No in dication to initiate hemodialysis yet. 3. Hypertension in the setting of an RPGN. Blood pressure controlled. Continue current antihyperte nsive regimen. Continue IV fluids for now. Continue to hold diuretics. 4. Diabetes. Primary team increasing dose of basal insulin as blood sugars elevated follow pulse So elise-Medrol. Continue to monitor frequently. 5. Congestive heart failure. The patient appears euvolemic on exam. Needs to be monitored carefull y to avoid precipitating CHF exacerbation as we are currently giving normal saline in order to promot e potassium excretion as well as maintain stable blood pressure. 6. Anemia. Mild hemoglobin drop post-biopsy. Otherwise, iron stores are replete per labs done on d ay of admission. No need for transfusion. Will continue to monitor. 7. MGUS. Hematology consult appreciated. Awaiting SPEP and serum free light chain results. Follow up with hematology for a need for bone marrow biopsy. Barry Casanova MD cc: [id number] TT: 08/08/2016 21:51:38 Confirmation # [id number] Dictation # [id number] jina
--- NOTE | 2016-08-08 22:38 | CARD ---
APPROVED REPORT EKG Measurement Heart [id number] CT [id number] <Conclusion> Normal sinus rhythm Normal ECG
[2016-08-08 22:47] LABS: CALCIUM 8.6 mg/dL (8.6-10.3)
[2016-08-09] MEDS: oxyCODONE 15 mg Immediate Release Tab PO PRN ×2 (00:28→10:58)
[2016-08-09] MEDS: Insulin Reg-HIGH-Coverage SC SCH ×4 (02:11→14:09)
[2016-08-09] MEDS: Sodium Chloride 0.9% 1,000 ML IV SCH (04:00)
[2016-08-09 07:16] LABS: ADD MANUAL DIFF? NO
[2016-08-09 07:26] LABS: BASO # 0.01 K/mm3 (0.0-2.0); BASO % 0.1 % (0.0-3.0); GRAN # 8.44 (1.4-6.5); GRAN % 96.1 % (50.0-68.0); HEMATOCRIT 25.4 % (42.0-52.0); LYMPH # 0.2 (1.2-3.4); LYMPH % 2.4 % (22.0-35.0); MEAN CELL VOLUME 85.8 fL (80.0-105.0); MEAN CORPUSCULAR HEMOGLOBIN 28.4 pg (25.0-35.0); MEAN CORPUSCULAR HGB CONC 33.1 g/dl (31.0-37.0); MEAN PLATELET VOLUME 10.8 fl (7.0-11.0); MONO # 0.1 (0.1-0.6); MONO % 1.4 % (1.0-6.0); PLATELET COUNT 131 10^3/uL (120.0-450.0); RED CELL DISTRIBUTION WIDTH 14.7 % (11.5-14.5); WHITE BLOOD COUNT 8.8 10^3/ul (4.5-11.0)
[2016-08-09 07:35] LABS: CALCIUM 7.9 mg/dL (8.4-10.5); POTASSIUM 4.5 mmol/L (3.6-5.0)
[2016-08-09] MEDS: Insulin Detemir 100 units/ml Vial (Levemir) SC SCH (08:14)
[2016-08-09] MEDS: Pantoprazole 40 mg EC Tab PO SCH (09:46)
[2016-08-09] MEDS: Levothyroxine 88 MCG TAB PO SCH (09:46)
[2016-08-09] MEDS: Metoprolol Succinate 50 mg XL Tab PO SCH (09:46)
[2016-08-09 10:01] VITALS: TEMP 98.5
[2016-08-09] MEDS ORDERED: Insulin Detemir 100 units/ml Vial (Levemir) SC SCH (10:21)
[2016-08-09] MEDS ORDERED: Insulin Detemir 100 units/ml Vial (Levemir) SC STA (10:21)
[2016-08-09 14:11] VITALS: BP 154/82; PULSE 87
--- NOTE | 2016-08-09 15:48 | CP.PCM.DIS ---
<Pete Mistry - Last Filed: 08/09/16 15:19> Provider - Provider Date of Admission: 08/05/16 17:34 Attending physician: Goldy Russell MD Primary care physician: Pakr Renteria MD Consults: Nephro: Edilberto Heme: Rafat IR: Kimberlyn Morales Time Spent in preparation of Discharge (in minutes): 45 Hospital Course - Lab Results Lab Results: Most Recent Lab Values WBC 8.8 10^3/ul (4.5-11.0) 08/09/16 06:45 RBC 2.96 10^6/uL (3.5-6.1) L 08/09/16 06:45 Hgb 8.4 gm/dL (14.0-18.0) L 08/09/16 06:45 Hct 25.4 % (42.0-52.0) L 08/09/16 06:45 MCV 85.8 fL (80.0-105.0) 08/09/16 06:45 MCH 28.4 pg (25.0-35.0) 08/09/16 06:45 MCHC 33.1 g/dl (31.0-37.0) 08/09/16 06:45 RDW 14.7 % (11.5-14.5) H 08/09/16 06:45 Plt Count 131 10^3/uL (120.0-450.0) 08/09/16 06:45 MPV 10.8 fl (7.0-11.0) 08/09/16 06:45 Gran % 96.1 % (50.0-68.0) H 08/09/16 06:45 Lymph % (Auto) 2.4 % (22.0-35.0) L 08/09/16 06:45 Adams % (Auto) 1.4 % (1.0-6.0) 08/09/16 06:45 Eos % (Auto) 0.0 % (1.5-5.0) L 08/09/16 06:45 Baso % (Auto) 0.1 % (0.0-3.0) 08/09/16 06:45 Gran # 8.44 (1.4-6.5) H 08/09/16 06:45 Lymph # 0.2 (1.2-3.4) L 08/09/16 06:45 Adams # 0.1 (0.1-0.6) 08/09/16 06:45 Eos # 0.0 (0.0-0.7) 08/09/16 06:45 Baso # 0.01 K/mm3 (0.0-2.0) 08/09/16 06:45 PT 11.2 Seconds (9.9-11.8) 08/05/16 16:20 INR 1.04 (0.93-1.08) 08/05/16 16:20 APTT 27.7 Seconds (23.7-30.8) 08/05/16 16:20 Sodium 137 mmol/L (132-148) 08/09/16 06:45 Potassium 4.5 mmol/L (3.6-5.0) 08/09/16 06:45 Chloride 107 mmol/L (98-107) 08/09/16 06:45 Carbon Dioxide 17 mmol/L (21-33) L 08/09/16 06:45 Anion Gap 18 (10-20) 08/09/16 06:45 BUN 78 mg/dL (7-21) H 08/09/16 06:45 Creatinine 5.2 mg/dL (0.5-1.4) H 08/09/16 06:45 Est GFR ( Amer) 14 08/09/16 06:45 Est GFR (Non-Af Amer) 11 08/09/16 06:45 POC Glucose (mg/dL) 288 mg/dL (65-110) H 08/09/16 14:01 Random Glucose 245 mg/dL (70-110) H 08/09/16 06:45 Hemoglobin A1c 6.4 % (4.2-6.5) 08/05/16 16:00 Serum Osmolality 314 mosm/kg (271-296) H 08/05/16 16:20 Calcium 7.9 mg/dL (8.4-10.5) L 08/09/16 06:45 Phosphorus 4.4 mg/dL (2.5-4.5) 08/07/16 06:10 Magnesium 1.9 mg/dL (1.7-2.2) 08/06/16 11:59 Iron 58 ug/dL (45-180) 08/06/16 11:59 TIBC 199 ug/dL (261-462) L 08/06/16 11:59 % Saturation 29 % (20-55) 08/06/16 11:59 Ferritin 376.0 ng/mL 08/06/16 11:59 Total Bilirubin 0.4 mg/dL (0.2-1.3) 08/08/16 07:00 AST 19 U/L (15-59) 08/08/16 07:00 ALT 31 U/L (7-56) 08/08/16 07:00 Alkaline Phosphatase 118 U/L (38-133) 08/08/16 07:00 Lactate Dehydrogenase 423 U/L (333-699) 08/08/16 11:45 Total Creatine Kinase 50 U/L (35-230) 08/08/16 11:45 Troponin I < 0.01 ng/mL 08/08/16 11:45 NT-Pro-B Natriuret Pep 1020 pg/mL (0-450) H 08/05/16 16:00 Total Protein 6.0 g/dL (5.8-8.3) 08/08/16 07:00 Total Protein (PEP) 6.0 g/dL (6.1-8.1) L 08/07/16 06:10 Albumin 3.0 g/dL (3.0-4.8) 08/08/16 07:00 Globulin 3.0 gm/dL 08/08/16 07:00 Albumin/Globulin Ratio 1.0 (1.1-1.8) L 08/08/16 07:00 Amylase 71 U/L (35-125) 08/05/16 16:20 Lipase 59 U/L (23-300) 08/05/16 16:20 Vitamin B12 292 pg/mL (239-931) 08/06/16 11:59 Folate 8.5 ng/mL 08/06/16 11:59 Calcium (PTH Intact) 8.6 mg/dL (8.6-10.3) 08/07/16 06:10 PTH w/Ion &Tot Calcium 133 pg/mL (14-64) H 08/07/16 06:10 Urine Color Yellow (YELLOW) 08/05/16 23:00 Urine Appearance Clear (CLEAR) 08/05/16 23:00 Urine pH 6.0 (4.7-8.0) 08/05/16 23:00 Ur Specific Harcourt 1.020 (1.005-1.035) 08/05/16 23:00 Urine Protein 100 mg/dL (<30 mg/dL) H 08/05/16 23:00 Urine Glucose (UA) 500 mg/dL (NEGATIVE) H 08/05/16 23:00 Urine Ketones Negative mg/dL (NEGATIVE) 08/05/16 23:00 Urine Blood Large (NEGATIVE) H 08/05/16 23:00 Urine Nitrate Negative (NEGATIVE) 08/05/16 23:00 Urine Bilirubin Negative (NEGATIVE) 08/05/16 23:00 Urine Urobilinogen 0.2 E.U./dL (<1 E.U./dL) 08/05/16 23:00 Ur Leukocyte Esterase Negative Dejah/uL (NEGATIVE) 08/05/16 23:00 Urine RBC Tntc /hpf (0-2) 08/05/16 23:00 Urine WBC 1 - 3 /hpf (0-6) 08/05/16 23:00 Ur Epithelial Cells 1 - 3 /hpf (0-5) 08/05/16 23:00 Urine Bacteria Small (NEG) 08/05/16 23:00 Urine Osmolality 341 mosm/kg (50-645) 08/05/16 23:00 Ur Random Creatinine 47 mg/dL 08/05/16 23:00 U Random Total Protein 4793 mg/g creat (22-128) H 08/06/16 14:00 Ur Random Sodium 86 meq/L 08/05/16 23:00 Ur Random Potassium 13.0 meq/L 08/05/16 23:00 ERIN Screen Negative (Negative) 08/07/16 06:10 ERIN Titer TEST NOT PERFORMED 08/07/16 06:10 ERIN Titer 2 TEST NOT PERFORMED 08/07/16 06:10 ERIN Pattern TEST NOT PERFORMED 08/07/16 06:10 ERIN Pattern 2 TEST NOT PERFORMED 08/07/16 06:10 Complement C3 107.0 mg/dL (88.0-165.0) 08/08/16 07:00 Complement C4 27.4 mg/dL (14.0-44.0) 08/08/16 07:00 Blood Type O NEGATIVE 08/05/16 16:20 Antibody Screen Negative 08/05/16 16:20 BBK History Checked Patient has bt 08/05/16 16:20 - Hospital Course Hospital Course: Upon Admission: 61yo F with PMHx of CKD, DM, Vasculitis, HTN, CHF, here for evaluation of abnormal lab work. Patient was sent in by his PMD after having an acute elevation in his creatinine. Creatinine on admission was 5.9. Patient denied any complaints. Renal US was negative, Bladder US was unremarkable. Nephrology consult was obtained, 1g Solumedrol infusions were started daily. IR consult was obtained for renal biopsy and the sample was sent out for analysis. We continued the patient on his home regimen of BP meds except stopped Losartan. He was seen by the nephrology today, was asked to take 60mg Prednisone daily upon discharge and follow up with him as an out-patient. Patient then became impatient and elected to sign out against medical advice. Patient stated that he had enough prednisone supply at home for the next two weeks and said that he would follow up with his primary care physician and Dr. Casanova as out-patient in order for re-fills. He was counseled on stopping the Losartan until follow up. He understands and agrees with plan and still elected to sign out against medical advice. 1. Acute Renal Failure; hx of bx proven cresenteric IgA nephropathy 2. Hx of DM 3. Hx of HTN 4. Hx of CHF Patient elected to sign out against medical advice Asked to stop Losartan until follow up Patient stated that he has enough prednisone for the next 2 weeks and will follow up within that time frame. Discharge Exam - Head Exam Head Exam: ATRAUMATIC, NORMAL INSPECTION, NORMOCEPHALIC - Eye Exam Eye Exam: EOMI, Normal appearance. absent: Scleral icterus - ENT Exam ENT Exam: Mucous Membranes Moist - Respiratory Exam Respiratory Exam: Clear to PA & Lateral, NORMAL BREATHING PATTERN. absent: Rhonchi, Wheezes, Respiratory Distress - Cardiovascular Exam Cardiovascular Exam: RRR, +S1, +S2. absent: JVD - GI/Abdominal Exam GI & Abdominal Exam: Soft. absent: Distended, Firm, Guarding, Rigid, Tenderness - Neurological Exam Neurological exam: Alert, Normal Gait, Oriented x3 - Psychiatric Exam Psychiatric exam: Normal Affect, Normal Mood - Skin Skin Exam: Dry, Intact, Normal Color, Warm Discharge Plan - Follow Up Plan Condition: FAIR Disposition: AGAINST MEDICAL ADVICE Additional Instructions: Patient is cleared for discharge as per Dr. Russell 1. Follow up w Referrals: Park Renteria MD [Primary Care Provider] - <Goldy Russell MD - Last Filed: 08/09/16 16:00> Provider - Provider Date of Admission: 08/05/16 17:34 Attending physician: Goldy Russell MD Primary care physician: Park Renteria MD Hospital Course - Lab Results Lab Results: Most Recent Lab Values WBC 8.8 10^3/ul (4.5-11.0) 08/09/16 06:45 RBC 2.96 10^6/uL (3.5-6.1) L 08/09/16 06:45 Hgb 8.4 gm/dL (14.0-18.0) L 08/09/16 06:45 Hct 25.4 % (42.0-52.0) L 08/09/16 06:45 MCV 85.8 fL (80.0-105.0) 08/09/16 06:45 MCH 28.4 pg (25.0-35.0) 08/09/16 06:45 MCHC 33.1 g/dl (31.0-37.0) 08/09/16 06:45 RDW 14.7 % (11.5-14.5) H 08/09/16 06:45 Plt Count 131 10^3/uL (120.0-450.0) 08/09/16 06:45 MPV 10.8 fl (7.0-11.0) 08/09/16 06:45 Gran % 96.1 % (50.0-68.0) H 08/09/16 06:45 Lymph % (Auto) 2.4 % (22.0-35.0) L 08/09/16 06:45 Adams % (Auto) 1.4 % (1.0-6.0) 08/09/16 06:45 Eos % (Auto) 0.0 % (1.5-5.0) L 08/09/16 06:45 Baso % (Auto) 0.1 % (0.0-3.0) 08/09/16 06:45 Gran # 8.44 (1.4-6.5) H 08/09/16 06:45 Lymph # 0.2 (1.2-3.4) L 08/09/16 06:45 Adams # 0.1 (0.1-0.6) 08/09/16 06:45 Eos # 0.0 (0.0-0.7) 08/09/16 06:45 Baso # 0.01 K/mm3 (0.0-2.0) 08/09/16 06:45 PT 11.2 Seconds (9.9-11.8) 08/05/16 16:20 INR 1.04 (0.93-1.08) 08/05/16 16:20 APTT 27.7 Seconds (23.7-30.8) 08/05/16 16:20 Sodium 137 mmol/L (132-148) 08/09/16 06:45 Potassium 4.5 mmol/L (3.6-5.0) 08/09/16 06:45 Chloride 107 mmol/L (98-107) 08/09/16 06:45 Carbon Dioxide 17 mmol/L (21-33) L 08/09/16 06:45 Anion Gap 18 (10-20) 08/09/16 06:45 BUN 78 mg/dL (7-21) H 08/09/16 06:45 Creatinine 5.2 mg/dL (0.5-1.4) H 08/09/16 06:45 Est GFR ( Amer) 14 08/09/16 06:45 Est GFR (Non-Af Amer) 11 08/09/16 06:45 POC Glucose (mg/dL) 288 mg/dL (65-110) H 08/09/16 14:01 Random Glucose 245 mg/dL (70-110) H 08/09/16 06:45 Hemoglobin A1c 6.4 % (4.2-6.5) 08/05/16 16:00 Serum Osmolality 314 mosm/kg (271-296) H 08/05/16 16:20 Calcium 7.9 mg/dL (8.4-10.5) L 08/09/16 06:45 Phosphorus 4.4 mg/dL (2.5-4.5) 08/07/16 06:10 Magnesium 1.9 mg/dL (1.7-2.2) 08/06/16 11:59 Iron 58 ug/dL (45-180) 08/06/16 11:59 TIBC 199 ug/dL (261-462) L 08/06/16 11:59 % Saturation 29 % (20-55) 08/06/16 11:59 Ferritin 376.0 ng/mL 08/06/16 11:59 Total Bilirubin 0.4 mg/dL (0.2-1.3) 08/08/16 07:00 AST 19 U/L (15-59) 08/08/16 07:00 ALT 31 U/L (7-56) 08/08/16 07:00 Alkaline Phosphatase 118 U/L (38-133) 08/08/16 07:00 Lactate Dehydrogenase 423 U/L (333-699) 08/08/16 11:45 Total Creatine Kinase 50 U/L (35-230) 08/08/16 11:45 Troponin I < 0.01 ng/mL 08/08/16 11:45 NT-Pro-B Natriuret Pep 1020 pg/mL (0-450) H 08/05/16 16:00 Total Protein 6.0 g/dL (5.8-8.3) 08/08/16 07:00 Total Protein (PEP) 6.0 g/dL (6.1-8.1) L 08/07/16 06:10 Albumin 3.0 g/dL (3.0-4.8) 08/08/16 07:00 Globulin 3.0 gm/dL 08/08/16 07:00 Albumin/Globulin Ratio 1.0 (1.1-1.8) L 08/08/16 07:00 Amylase 71 U/L (35-125) 08/05/16 16:20 Lipase 59 U/L (23-300) 08/05/16 16:20 Vitamin B12 292 pg/mL (239-931) 08/06/16 11:59 Folate 8.5 ng/mL 08/06/16 11:59 Calcium (PTH Intact) 8.6 mg/dL (8.6-10.3) 08/07/16 06:10 PTH w/Ion &Tot Calcium 133 pg/mL (14-64) H 08/07/16 06:10 Urine Color Yellow (YELLOW) 08/05/16 23:00 Urine Appearance Clear (CLEAR) 08/05/16 23:00 Urine pH 6.0 (4.7-8.0) 08/05/16 23:00 Ur Specific Harcourt 1.020 (1.005-1.035) 08/05/16 23:00 Urine Protein 100 mg/dL (<30 mg/dL) H 08/05/16 23:00 Urine Glucose (UA) 500 mg/dL (NEGATIVE) H 08/05/16 23:00 Urine Ketones Negative mg/dL (NEGATIVE) 08/05/16 23:00 Urine Blood Large (NEGATIVE) H 08/05/16 23:00 Urine Nitrate Negative (NEGATIVE) 08/05/16 23:00 Urine Bilirubin Negative (NEGATIVE) 08/05/16 23:00 Urine Urobilinogen 0.2 E.U./dL (<1 E.U./dL) 08/05/16 23:00 Ur Leukocyte Esterase Negative Dejah/uL (NEGATIVE) 08/05/16 23:00 Urine RBC Tntc /hpf (0-2) 08/05/16 23:00 Urine WBC 1 - 3 /hpf (0-6) 08/05/16 23:00 Ur Epithelial Cells 1 - 3 /hpf (0-5) 08/05/16 23:00 Urine Bacteria Small (NEG) 08/05/16 23:00 Urine Osmolality 341 mosm/kg (50-645) 08/05/16 23:00 Ur Random Creatinine 47 mg/dL 08/05/16 23:00 U Random Total Protein 4793 mg/g creat (22-128) H 08/06/16 14:00 Ur Random Sodium 86 meq/L 08/05/16 23:00 Ur Random Potassium 13.0 meq/L 08/05/16 23:00 ERIN Screen Negative (Negative) 08/07/16 06:10 ERIN Titer TEST NOT PERFORMED 08/07/16 06:10 ERIN Titer 2 TEST NOT PERFORMED 08/07/16 06:10 ERIN Pattern TEST NOT PERFORMED 08/07/16 06:10 ERIN Pattern 2 TEST NOT PERFORMED 08/07/16 06:10 Complement C3 107.0 mg/dL (88.0-165.0) 08/08/16 07:00 Complement C4 27.4 mg/dL (14.0-44.0) 08/08/16 07:00 Blood Type O NEGATIVE 08/05/16 16:20 Antibody Screen Negative 08/05/16 16:20 BBK History Checked Patient has bt 08/05/16 16:20 Attending/Attestation - Attestation I have personally seen and examined this patient.: Yes I have fully participated in the care of the patient.: Yes I have reviewed all pertinent clinical information, including history, physical exam and plan: Yes Notes (Text): 08/09/16 15:55 atient was seen and examined with medical staff coordinator .Agreed with resident assessment and plan. 61 year old male with past medical history of CKD(IGA Nephropathy), diabetes, vasculitis, hypertension and ?CHF who was referred from d for acute on chronic renal failure.Patient was seen in consultation with Nephrology, was treated with IV Methylprednisolon 1 gram daily, Patient underwent renal biopsy 2 days back by IR.Results are pending.He has completed IV steroid therapy.His creatinin is slowly improving, has come down to 5.2, his hyperkalemia has resolved.His Losartan has been stopped. He was also evaluated by hematology for anemia. He did not want to stay in the hospital.He is alert, awake and oriented, does not want to wait for Nephrology to come back and talk to him .He is alert, awake and oriented.He has signed against medical advice and is planning to follow with (Nephrology) to follow up the results of biopsy. Management plan was discussed in detail with patient Education was provided.
--- NOTE | 2016-08-09 23:01 | CP.PCM.PN ---
Subjective - Date & Time of Evaluation Date of Evaluation: 08/09/16 Time of Evaluation: 11:00 - Subjective Subjective: Patient left AMA, evaluated earlier; no complaints; Objective - Vital Signs/Intake and Output Vital Signs (last 24 hours): Temp Pulse Resp BP Pulse Ox 98.5 F 87 20 154/82 H 98 08/09/16 10:00 08/09/16 14:08 08/09/16 10:00 08/09/16 14:08 08/09/16 10:00 - Labs Labs: 08/09/16 06:45 08/09/16 06:45 PT 11.2 Seconds (9.9-11.8) 08/05/16 16:20 INR 1.04 (0.93-1.08) 08/05/16 16:20 APTT 27.7 Seconds (23.7-30.8) 08/05/16 16:20 - Constitutional Appears: No Acute Distress - Head Exam Head Exam: NORMAL INSPECTION - Eye Exam Eye Exam: Normal appearance - ENT Exam ENT Exam: Mucous Membranes Moist - Respiratory Exam Respiratory Exam: Clear to Ausculation Bilateral, NORMAL BREATHING PATTERN - Cardiovascular Exam Cardiovascular Exam: +S1, +S2 - GI/Abdominal Exam GI & Abdominal Exam: Soft. absent: Tenderness - Extremities Exam Additional comments: edematous legs; - Neurological Exam Neurological Exam: Alert, Awake - Skin Skin Exam: Warm. 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
[2016-08-10 03:15] LABS: KAPPA/LAMBDA FREE RATIO 2.36 (0.26-1.65)
[2016-08-10 07:05] LABS: BETA 1 GLOBULIN 0.4 g/dL (0.4-0.6); BETA 2 GLOBULIN 0.6 g/dL (0.2-0.5); GAMMA GLOBULIN 0.8 g/dL (0.8-1.7)
== END 2016-08-09 14:58 | disposition left against medical advice (07) | DRG 316 ==
LOC: ED 15:13 → ERH 17:34 → 3RSO 20:05
PROVIDERS: ADMIT Internal Medicine; ATTEND Internal Medicine
PROC: 0TB13ZX Excision of Left Kidney, Percutaneous Approach, Diagnostic (ICD-10-PCS; principal; 2016-08-07 10:00)
DX: N17.9 Acute kidney failure, unspecified (principal); N02.8 Recurrent and persistent hematuria with other morphologic changes; I13.0 Hypertensive heart and chronic kidney disease with heart failure and stage 1 through stage 4 chronic kidney disease, or unspecified chronic kidney disease; N18.3 Chronic kidney disease, stage 3 (moderate); I50.9 Heart failure, unspecified; E87.5 Hyperkalemia; D47.2 Monoclonal gammopathy; D63.1 Anemia in chronic kidney disease; D72.829 Elevated white blood cell count, unspecified; T38.0X5A Adverse effect of glucocorticoids and synthetic analogues, initial encounter; E03.9 Hypothyroidism, unspecified; I77.6 Arteritis, unspecified; Z79.52 Long term (current) use of systemic steroids; Z79.4 Long term (current) use of insulin; Z87.891 Personal history of nicotine dependence; Z82.3 Family history of stroke

== ENCOUNTER 2016-09-05 21:23 | Observation (INO) | payer OTHER ==
[2016-09-05 21:23] VITALS: BMI 35.9
--- NOTE | 2016-09-05 21:44 | ED PDOC ---
Arrival/HPI - General Chief Complaint: Abdominal Pain Time Seen by Provider: 09/05/16 21:37 Historian: Patient - History of Present Illness Narrative History of Present Illness (Text): 09/05/16 21:44 Gautam Chuahan is a 61 year old male, chronic kidney disease, IDDM, vasculitis, hypertension, and CHF, who presents to the Emergency department complaining of LLQ pain. Patient reports he has began experiencing LLQ pain with associated diarrhea 2 days ago. Patient denies any nausea or vomiting but notes LLQ pain is still present. Patient denies any fever, chills, chest pain, shortness of breath, urinary symptoms, back pain, neck pain, headache, dizziness, or any other complaints. Time/Duration: < week (2 days) Symptom Onset: Gradual Symptom Course: Unchanged Activities at Onset: Rest, Light Context: Home Past Medical History - Provider Review Nursing Documentation Reviewed: Yes - Infectious Disease Hx of Infectious Diseases: None - Tetanus Immunization Tetanus Immunization: Unknown - Past Medical History Past Medical History: No Previous - Cardiac Hx Cardiac Disorders: Yes Hx Congestive Heart Failure: Yes Hx Hypertension: Yes - Pulmonary Hx Respiratory Disorders: Yes Hx Chronic Obstructive Pulmonary Disease (COPD): Yes Other/Comment: SMOKED CIGARETTES SMOKED PK 1/2-QUIT - Neurological Hx Neurological Disorder: No - HEENT Hx HEENT Disorder: No - Renal Hx Renal Disorder: Yes Hx Renal Failure: Yes - Endocrine/Metabolic Hx Endocrine Disorders: Yes Hx Diabetes Mellitus Type 1: Yes Hx Hypothyroidism: Yes - Hematological/Oncological Hx Blood Disorders: Yes Hx Anemia: Yes Other/Comment: VASCULITIS - Integumentary Hx Dermatological Disorder: No - Musculoskeletal/Rheumatological Hx Musculoskeletal Disorders: Yes Hx Arthritis: Yes Hx Falls: No Hx Unsteady Gait: Yes (CANE) - Gastrointestinal Hx Gastrointestinal Disorders: No - Genitourinary/Gynecological Hx Genitourinary Disorders: Yes Other/Comment: bph - Psychiatric Hx Depression: No Hx Emotional Abuse: No Hx Physical Abuse: No Hx Substance Use: No - Past Surgical History Past Surgical History: No Previous - Surgical History Hx Orthopedic Surgery: Yes (L KNEE SURGERY) - Anesthesia Hx Anesthesia Reactions: No Hx Malignant Hyperthermia: No - Suicidal Assessment Feels Threatened In Home Enviroment: No Family/Social History - Physician Review Nursing Documentation Reviewed: Yes Family/Social History: No Known Family HX Smoking Status: Former Smoker Hx Alcohol Use: Yes Hx Substance Use: No Hx Substance Use Treatment: No Allergies/Home Meds Allergies/Adverse Reactions: Allergies No Known Allergies Allergy (Verified 08/05/16 22:07) Home Medications: Home Meds Medication Instructions Recorded Confirmed Atorvastatin Calcium [Lipitor] 20 mg PO DAILY 10/22/13 09/05/16 Insulin Glargine,Hum.rec.anlog 15 units SC DAILY 10/22/13 09/05/16 [Lantus] Losartan [Cozaar] 50 mg PO DAILY 10/22/13 09/05/16 amLODIPine [Norvasc] 5 mg PO DAILY 10/22/13 09/05/16 Cholecalciferol [Vitamin D 1000 IU] 5,000 iu PO QWK 08/05/16 09/05/16 Insulin Glargine,Hum.rec.anlog 30 unit SQ DIN 08/05/16 09/05/16 [Toujeo Solostar] Insulin Lispro [Humalog (Insulin 15 units SC DAILY 08/05/16 09/05/16 Lispro)] Levothyroxine [Synthroid] 88 mcg PO DAILY 08/05/16 09/05/16 Metoprolol Succinate [Toprol XL] 50 mg PO BID 08/05/16 09/05/16 Ondansetron [Zofran] 4 mg PO BID 08/05/16 09/05/16 Pantoprazole [Protonix] 40 mg PO DAILY 08/05/16 09/05/16 Temazepam [Restoril] 30 mg PO DIN 08/05/16 09/05/16 hydrALAZINE [hydralazine 50 mg PO Q4 08/05/16 09/05/16 Hydrochloride] oxyCODONE [oxyCODONE Immediate 15 mg PO Q4 08/05/16 09/05/16 Release Tab] predniSONE [Prednisone] 10 mg PO DAILY 08/05/16 09/05/16 Review of Systems - Physician Review All systems were reviewed & negative as marked: Yes - Review of Systems Constitutional: Normal. absent: Fevers Eyes: Normal ENT: Normal Respiratory: Normal. absent: SOB, Cough Cardiovascular: Normal. absent: Chest Pain Gastrointestinal: Abdominal Pain, Nausea. absent: Diarrhea, Vomiting Genitourinary Male: Normal. absent: Dysuria, Frequency, Hematuria, Urinary Output Changes Musculoskeletal: Normal. absent: Back Pain, Neck Pain Skin: Normal. absent: Rash Neurological: Normal. absent: Headache, Dizziness Endocrine: Normal Hemo/Lymphatic: Normal Psychiatric: Normal Physical Exam Vital Signs Reviewed: Yes Vital Signs Temp Pulse Resp BP Pulse Ox 09/06/16 05:00 98.1 F 87 18 164/95 H 99 09/06/16 03:57 84 168/91 H 09/06/16 03:08 79 16 181/103 H 97 09/06/16 01:22 97.9 F 86 17 175/96 H 99 09/06/16 00:23 97.9 F 82 16 164/94 H 98 09/05/16 21:31 98.0 F 88 18 175/104 H 97 Temperature: Afebrile Blood Pressure: Hypertensive Pulse: Regular Respiratory Rate: Normal Appearance: Positive for: Well-Appearing, Non-Toxic, Comfortable Pain Distress: None Mental Status: Positive for: Alert and Oriented X 3 - Systems Exam Head: Present: Atraumatic, Normocephalic Pupils: Present: PERRL Extroacular Muscles: Present: EOMI Conjunctiva: Present: Normal Mouth: Present: Moist Mucous Membranes Neck: Present: Normal Range of Motion Respiratory/Chest: Present: Clear to Auscultation, Good Air Exchange. No: Respiratory Distress, Accessory Muscle Use Cardiovascular: Present: Regular Rate and Rhythm, Normal S1, S2. No: Murmurs Abdomen: Present: Tenderness (LLQ tenderness), Normal Bowel Sounds, Other ( Ecchymotic skin bruising to LLQ(site of insulin injection), Raised linear nodular-like skin striations to LLQ). No: Distention, Peritoneal Signs Back: Present: Normal Inspection Upper Extremity: Present: Normal Inspection. No: Cyanosis, Edema Lower Extremity: Present: Normal Inspection. No: Edema Neurological: Present: GCS=15, CN II-XII Intact, Speech Normal Skin: Present: Warm, Dry, Normal Color. No: Rashes Psychiatric: Present: Alert, Oriented x 3, Normal Insight, Normal Concentration Medical Decision Making ED Course and Treatment: 09/05/16 21:44 Impression: 61 year old male complaining of LLQ pain with nausea. Differential Diagnosis included but are not limited to: Plan: -- CT Abdomen and Pelvis w/o contrast -- Labs, lipase -- Urinalysis -- IV fluids -- Zofran -- Morphine -- Reassess and disposition Prior Visits: Notes and results from previous visits were reviewed. - Lab Interpretations Lab Results: Lab Results 09/05/16 00:20: Urine Color Yellow, Urine Appearance Sl cloudy, Urine pH 6.0, Ur Specific [place] 1.025, Urine Protein >=300 H, Urine Glucose (UA) 100 H, Urine Ketones Negative, Urine Blood Small H, Urine Nitrate Negative, Urine Bilirubin Negative, Urine Urobilinogen 0.2, Ur Leukocyte Esterase Negative, Urine RBC 5 - 10, Urine WBC 1 - 3, Ur Epithelial Cells 0 - 2, Urine Bacteria Rare I have reviewed the lab results: Yes - RAD Interpretation Narrative RAD Interpretations (Text): CT Abdomen and Pelvis shows: Lower thorax: Heart size is normal. There are coronary calcifications. Lung bases are clear ABDOMEN: Liver: unremarkable Gallbladder and bile ducts: unremarkable Pancreas: Pancreas is atrophic. Spleen: unremarkable Adrenals: unremarkable Kidneys and ureters: Kidneys and ureters are unremarkable. Stomach and bowel: The stomach is partially distended. Rotation is normal. Small bowel is mildly distended with fluid. There are focally dilated loops of bowel in the left midabdomen. There are airfluid levels in the left upper quadrant area and. There are scattered air-fluid levels in the left mid abdomen. There is no obstruction. Terminal ileum is unremarkable. Appendix is unremarkable. There is no pericecal inflammation.Colon is incompletely distended which limits evaluation. There is scattered diverticulosis Appendix: See stomach and bowel PELVIS: Bladder: unremarkable Reproductive: Seminal vesicles and prostate are unremarkable. ABDOMEN and PELVIS: Intraperitoneal space: There is ascites in the abdomen and pelvis. There is no free air. Bones/joints: There are degenerative changes in the osseus structures. Soft tissues: There is edema in the left lower abdominal wall. Vasculature: There are vascular calcifications. Lymph nodes: There is no pathologic adenopathy. IMPRESSION: No acute solid visceral or bowel abnormality; diverticulosis without CT findings of diverticulitis; ascites of unknown etiology; left lower abdominal wall edema and inflammation possibly cellulitis. Corporate Compliance Director: Radiologist - Medication Orders Current Medication Orders: Discontinued Medications Clonidine HCl (Catapres) 0.2 mg PO STAT STA Stop: 09/06/16 03:33 Last Admin: 09/06/16 03:57 Dose: 0.2 mg Sodium Chloride (Sodium Chloride 0.9%) 1,000 mls @ 100 mls/hr IV .Q10H [facility] Last Admin: 09/05/16 22:21 Dose: 100 mls/hr Sodium Chloride (Sodium Chloride 0.9%) 500 mls @ 500 mls/hr IV .Q1H STA Stop: 09/06/16 03:38 Last Admin: 09/06/16 03:21 Dose: Not Given Non-Admin Reason: BP Parameters Not Met Morphine Sulfate (Morphine) 4 mg IVP STAT STA Stop: 09/05/16 21:54 Last Admin: 09/05/16 22:22 Dose: 4 mg Ondansetron HCl (Zofran Inj) 4 mg IVP ONCE ONE Stop: 09/05/16 21:54 Last Admin: 09/05/16 22:22 Dose: 4 mg ED OBSERVATION Discharge: Yes Date of observation admission: 09/05/16 Time of observation admission: 21:45 - Observation admission statement Patient is being placed in observation because:: abdominal pain - Goals of Observation Goals of observation are:: treat and determine etiology of symptoms - Progress Note Progress Note: 09/05/16 23:55 Reviewed radiology, CT Abdomen and Pelvis shows: No acute solid visceral or bowel abnormality; diverticulosis without CT findings of diverticulitis; ascites of unknown etiology; left lower abdominal wall edema and inflammation possibly cellulitis. 09/06/16 00:20 CXR shows no acute processes. 09/06/16 02:20 Case was discussed with Dr. Kramer, hogshead hand in detail,also evaluating the patient who concurs pt can be d/c home with follow up with PMD this week. - Scribe Statement The provider has reviewed the documentation as recorded by the Karthik Brown Provider Attestation: All medical record entries made by the Karthik were at my direction and personally dictated by me. I have reviewed the chart and agree that the record accurately reflects my personal performance of the history, physical exam, medical decision making, and the department course for this patient. I have also personally directed, reviewed, and agree with the discharge instructions and disposition. Disposition/Present on Arrival - Present on Arrival Any Indicators Present on Arrival: No History of DVT/PE: No History of Uncontrolled Diabetes: Yes Urinary Catheter: No History of Decub. Ulcer: No History Surgical Site Infection Following: None - Disposition Have Diagnosis and Disposition been Completed?: Yes Diagnosis: Abdominal wall contusion, Diarrhea, Abdominal pain Disposition: HOME/ ROUTINE Disposition Time: 04:43 Patient Plan: Discharge Condition: GOOD
[2016-09-05] MEDS ORDERED: Morphine 4 mg/ml ISec IVP STA (21:53)
[2016-09-05] MEDS ORDERED: Sodium Chloride 0.9% 1,000 ML IV SCH (22:00)
[2016-09-05 22:42] LABS: HEMATOCRIT 33.8 % (42.0-52.0); MEAN CELL VOLUME 88.9 fL (80.0-105.0); MEAN CORPUSCULAR HEMOGLOBIN 28.2 pg (25.0-35.0); MEAN CORPUSCULAR HGB CONC 31.7 g/dl (31.0-37.0); MEAN PLATELET VOLUME 12.6 fl (7.0-11.0); RED CELL DISTRIBUTION WIDTH 17.1 % (11.5-14.5)
[2016-09-05 22:53] LABS: ALB/GLOB RATIO 1.3 (1.1-1.8); BILIRUBIN,TOTAL 0.7 mg/dL (0.2-1.3); CALCIUM 7.9 mg/dL (8.4-10.5); POTASSIUM 4.3 mmol/L (3.6-5.0); TOTAL PROTEIN 5.4 g/dL (5.8-8.3)
[2016-09-05 22:54] LABS: INR 1.03 (0.93-1.08); PARTIAL THROMBOPLASTIN TIME 21.5 Seconds (23.7-30.8)
--- NOTE | 2016-09-05 23:31 | CT ---
EXAM: CT Abdomen and Pelvis Without Intravenous Contrast CLINICAL HISTORY: 61 years old, male; Pain; Abdominal pain; Localized; Left lower quadrant (llq); Additional info: Lower left abdominal pain/hx. Renal insufficiency TECHNIQUE: Axial computed tomography images of the abdomen and pelvis without intravenous contrast. This CT exam was performed using one or more of the following dose reduction techniques: automated exposure control, adjustment of the mA and/or kV according to patient size, and/or use of iterative reconstruction technique. Coronal and sagittal reformatted images were created and reviewed. EXAM DATE/TIME: 09/05/2016 9:46 PM COMPARISON: CT GUIDED KIDNEY BIOPSY 08/07/2016 10:23:04 AM FINDINGS: Lower thorax: Heart size is normal. There are coronary calcifications. Lung bases are clear ABDOMEN: Liver: unremarkable Gallbladder and bile ducts: unremarkable Pancreas: Pancreas is atrophic. Spleen: unremarkable Adrenals: unremarkable Kidneys and ureters: Kidneys and ureters are unremarkable. Stomach and bowel: The stomach is partially distended. Rotation is normal. Small bowel is mildly distended with fluid. There are focally dilated loops of bowel in the left midabdomen. There are air-fluid levels in the left upper quadrant area and. There are scattered air-fluid levels in the left mid abdomen. There is no obstruction. Terminal ileum is unremarkable. Appendix is unremarkable. There is no pericecal inflammation.Colon is incompletely distended which limits evaluation. There is scattered diverticulosis Appendix: See stomach and bowel PELVIS: Bladder: unremarkable Reproductive: Seminal vesicles and prostate are unremarkable. ABDOMEN and PELVIS: Intraperitoneal space: There is ascites in the abdomen and pelvis. There is no free air. Bones/joints: There are degenerative changes in the osseus structures. Soft tissues: There is edema in the left lower abdominal wall. Vasculature: There are vascular calcifications. Lymph nodes: There is no pathologic adenopathy. IMPRESSION: No acute solid visceral or bowel abnormality; diverticulosis without CT findings of diverticulitis; ascites of unknown etiology; left lower abdominal wall edema and inflammation possibly cellulitis
[2016-09-06 00:45] LABS: URINE BILIRUBIN NEGATIVE (NEGATIVE); URINE BLOOD SMALL (NEGATIVE); URINE GLUCOSE (UA) 100 mg/dL (NEGATIVE); URINE KETONE NEGATIVE (NEGATIVE); URINE LEUKOCYTE ESTERASE NEGATIVE Leu/uL (NEGATIVE); URINE PROTEIN >=300 mg/dL (<30 mg/dL); URINE UROBILINOGEN 0.2 E.U./dL (<1 E.U./dL)
[2016-09-06 00:57] LABS: URINE APPEARANCE SL CLOUDY (CLEAR); URINE COLOR YELLOW (YELLOW)
[2016-09-06 01:13] LABS: URINE BACTERIA RARE (NEG); URINE EPITHELIAL CELLS 0 - 2 /hpf (0-5)
[2016-09-06 02:08] LABS: VENOUS BLOOD GAS BASE EXCESS -5.1 mmol/L (0.0-2.0); VENOUS BLOOD PH 7.22 (7.32-7.43)
[2016-09-06 02:51] LABS: ARTERIAL BLOOD GAS HCO3 21.5 mmol/L (21-28); ARTERIAL BLOOD GAS O2 CAPACITY 14.5 mL/dl (16-24); ARTERIAL BLOOD GAS PH 7.36 (7.35-7.45); ARTERIAL BLOOD HGB O2 SAT 95.6 % (95.0-98.0); CARBOXYHEMOGLOBIN 0.7 % (0.5-1.5); HHB 3.2 % (0-5); METHEMOGLOBIN 0.5 % (0.0-3.0)
[2016-09-06] MEDS: Sodium Chloride 0.9% 500 ML IV STA ×2 (03:08→03:21)
[2016-09-06 04:26] LABS: VENOUS BLOOD GAS BASE EXCESS -3.4 mmol/L (0.0-2.0); VENOUS BLOOD PH 7.32 (7.32-7.43)
[2016-09-06 05:07] VITALS: BP 164/95; PULSE 87; RESP 18; TEMP 98.1; O2SAT 99
--- NOTE | 2016-09-06 08:45 | RAD ---
HISTORY: abdominal pain COMPARISON: 08/06/2016 FINDINGS: LUNGS: No active pulmonary disease. PLEURA: No significant pleural effusion identified, no pneumothorax apparent. CARDIOVASCULAR: Probably top-normal. Apical lordotic projection also likely contributing to this suggested prominence OSSEOUS STRUCTURES: Right shoulder arthrosis VISUALIZED UPPER ABDOMEN: Normal. OTHER FINDINGS: None. IMPRESSION: No active disease.
== END 2016-09-06 04:40 | disposition home or self-care (01) ==
LOC: ED 21:23 → EROBSV 21:45
PROVIDERS: ADMIT Emergency Medicine; ATTEND Emergency Medicine
DX: R19.7 Diarrhea, unspecified (principal); R10.32 Left lower quadrant pain; S30.1XXA Contusion of abdominal wall, initial encounter; X58.XXXA Exposure to other specified factors, initial encounter; E10.9 Type 1 diabetes mellitus without complications; Z79.4 Long term (current) use of insulin; Z87.891 Personal history of nicotine dependence; I12.9 Hypertensive chronic kidney disease with stage 1 through stage 4 chronic kidney disease, or unspecified chronic kidney disease; N18.9 Chronic kidney disease, unspecified
CPT/HCPCS: 71010; 74176; 80053; 81001; 82803; 83690; 85027; 85610; 85730; 96374; 96375; 99284; G0378; J2270; J2405; J7040